=== PATIENT | female | born 1945 | race Caucasian/White ===

== ENCOUNTER 2017-07-25 06:52 | Inpatient (IN) | payer MEDICARE, MEDICAID ==
[~2017-07-25] VITALS: Ht 165.1 cm; Wt 53.5 kg
[~2017-07-25 06:52] MED LIST: ALPR1TAB2 PO; DULO30CA2 PO; ESTR1TAB28 PO; IPRA14.7 HHN; LEVO25TA9 PO; MEDR2.5T PO; OXYC-133 PO; TRAZ150T75 PO
--- NOTE | 2017-07-25 06:52 | NUR ---
TO BED 2 BIB PARAMEDICS C/O POSSIBLE TRAZODONE OVERDOSE. PT WAS FOUND IN THE BATHROOM FLOOR VOMITING WITH AN EMPTY BOTTLE OF TRAZODONE. PT AAOX4, SLOW TO RESPOND. PT REPORTS THATS SHE TOOK [address] PT ON CARDIAC MONITORING, CONTINUOUS POX. ER MD AT BEDSIDE TO EVAL PT WITH ORDERS RECEIVED. SL 18G TO LAC TOBACCO WRAPPING MACHINE TENDER. WILL CARRY OUT ORDERS.
[2017-07-25] MEDS ORDERED: ONDANSETRON HCL/PF 4 MG/2 ML VIAL ONE (06:57)
[2017-07-25] MEDS ORDERED: IV NS 0.9% 1,000 ML BAG IV ONE ×2 (07:00→08:30)
--- NOTE | 2017-07-25 07:10 | NUR ---
FEMALE WILMER MEHAT AT BEDSIDE FOR F/C INSERTION.
--- NOTE | 2017-07-25 07:35 | NUR ---
Patient woke up a little bit more, patient stated that she took xanax (unknown dose and quantity) with trazodone last night, but still unable to provide more informations.
--- NOTE | 2017-07-25 07:44 | NUR ---
Dr. Stewart at bedside, re assessing the patient.
[2017-07-25] MEDS ORDERED: TEMA30CA PO (07:54)
[2017-07-25] MEDS ORDERED: LISI2.5T2 PO (07:54)
[2017-07-25] MEDS ORDERED: LEVO50TA8 PO (07:54)
[2017-07-25] MEDS ORDERED: SERT50TA12 PO (07:54)
[2017-07-25] MEDS ORDERED: OXYC20TA42 PO (07:54)
[2017-07-25] MEDS ORDERED: AMLO5TAB2 PO (07:54)
[2017-07-25] MEDS ORDERED: OXYC30TA86 PO (07:54)
[2017-07-25 07:58] LABS: APPEARANCE,URINE SL CLOUDY (CLEAR); BILIRUBIN,URINE 1+ (NEGATIVE); BLOOD, URINE NEGATIVE Ery/uL (NEGATIVE); COLOR,URINE YELLOW (YELLOW); KETONES,URINE NEGATIVE (NEGATIVE); LEUKOCYTE ESTERASE ,URINE 1+ (NEGATIVE); NITRITE, URINE NEGATIVE (NEGATIVE); PROTEIN,URINE TRACE mg/dl (NEGATIVE); UGLUCOSE NEGATIVE (NEGATIVE); UROBILINOGEN,URINE 0.2 EU/dL (0.2)
[2017-07-25 08:04] LABS: BASOPHILS # (AUTO) 0.1 /CMM (0.0-0.2); BASOPHILS % (AUTO) 0.7 % (0.0-2.0); EOSINOPHILS # (AUTO) 0.1 /CMM (0.0-0.7); EOSINOPHILS % (AUTO) 0.9 % (0.0-6.0); HEMATOCRIT 38 % (33-45); HEMOGLOBIN 13.5 g/dL (11.5-14.8); LYMPHOCYTES # (AUTO) 1.4 /CMM (0.8-4.8); LYMPHOCYTES % (AUTO) 14.4 % (20.0-44.0); MEAN CORPUSCULAR HEMOGLOBIN 32 PG (26.0-33.0); MEAN CORPUSCULAR HGB CONC 35 g/dl (31.0-36.0); MEAN CORPUSCULAR VOLUME 90 fL (82-100); MONOCYTES # (AUTO) 0.8 /CMM (0.1-1.30); MONOCYTES % (AUTO) 8.2 % (2.0-12.0); NEUTROPHILS # (AUTO) 7.4 /CMM (1.8-8.9); NEUTROPHILS % (AUTO) 75.8 % (43.0-81.0); PLATELET COUNT (AUTO) 240 /CMM (150-450); RDW COEFFICIENT OF VARIATION 12.5 (11.5-15.0); RED BLOOD CELL COUNT(AUTO) 4.26 MIL/uL (4.0-5.2); WHITE BLOOD COUNT (AUTO) 9.8 K/uL (4.3-11.0)
[2017-07-25 08:09] LABS: INR 1.03 (0.87-1.13)
[2017-07-25 08:13] LABS: TROPONIN I < 0.017 ng/mL (0.00-0.056)
[2017-07-25 08:16] LABS: WBC,URINE 25-30 /HPF (0-3)
[2017-07-25 08:17] LABS: BACTERIA,URINE Moderate /HPF (None Seen); MUCUS,URINE Moderate /LPF (None Seen); SQUAMOUS EPITHELIAL CELL,UR Few /HPF (None Seen); URINE AMORPHOUS URATE Many /HPF (None Seen)
[2017-07-25 08:20] LABS: ALANINE AMINOTRANSFERASE 26 U/L (12-78); ALBUMIN 2.9 g/dL (3.4-5.0); ALCOHOL, BLOOD < 3 mg/dL (0-0); ALKALINE PHOSPHATASE 63 U/L (46-116); ASPARTATE AMINOTRANSFERASE 50 U/L (15-37); BILIRUBIN,DIRECT 0.2 mg/dL (0.0-0.2); BILIRUBIN,TOTAL 0.4 mg/dL (0.2-1.0); CALCIUM, SERUM 8.7 mg/dL (8.5-10.1); CARBON DIOXIDE 22 mmol/L (21-32); CHLORIDE 101 mmol/L (98-107); CREATININE 3.8 mg/dL (0.6-1.3); GLUCOSE 180 mg/dL (74-106); POTASSIUM 3.7 mmol/L (3.5-5.1); SALICYLATE 3.1 mg/dL (2.8-20.0); SODIUM SERUM 140 mmol/L (136-145); TOTAL PROTEIN, SERUM 6.6 g/dL (6.4-8.2)
[2017-07-25 08:24] LABS: UREA NITROGEN, BLOOD 93 mg/dL (7-18)
--- NOTE | 2017-07-25 08:32 | NUR ---
PANEL ON-CALL PAGED
[2017-07-25 08:47] LABS: ACETAMINOPHEN 0 ug/ml (10-30)
--- NOTE | 2017-07-25 09:07 | NUR ---
REPORT GIVEN TO JEANNETTE GUILLEN FOR CONT OF CARE
--- NOTE | 2017-07-25 09:57 | NUR ---
Pt was transferred to floor via acls protocol
[2017-07-25 10:00] VITALS: BP 117/65
--- NOTE | 2017-07-25 10:00 | NUR ---
RN NOTES PT WAS BROUGHT UP FROM ER. PT IS LETHARGIC AND AROUSABLE TO LIGHT PAIN. PT ON 3L O2, RESPIRATIONS ARE SHORT AND LABORED. IV ON RAC AND LAC INTACT AND SL. ASHRAF CATHETER IS INTACT AND DRAINING. SAFETY MEASURES ARE IN PLACE. WILL CONTINUE TO MONITOR.
[2017-07-25] MEDS ORDERED: IV NS 0.9% 1,000 ML IV PRN (10:45)
[2017-07-25] MEDS: LISINOPRIL (5MG) 5 MG TABLET PO SCH (11:00)
[2017-07-25] MEDS ORDERED: LORAZEPAM INJ 2 MG/ML VIAL IV PRN (11:00)
[2017-07-25] MEDS ORDERED: ONDANSETRON HCL/PF 4 MG/2 ML VIAL IVP PRN (11:00)
[2017-07-25] MEDS ORDERED: ALBUTEROL FS 2.5 MG/3 ML VIAL.NEB NEB PRN ×2 (11:00)
[2017-07-25] MEDS ORDERED: hydrALAZINE HCL 25 MG TABLET PO PRN (11:00)
[2017-07-25] MEDS ORDERED: MAGNESIUM HYDROXIDE 30 ML UDC PO PRN (11:00)
[2017-07-25] MEDS ORDERED: ZOLPIDEM TARTRATE 5 MG TABLET PO PRN (11:00)
[2017-07-25 11:44] LABS: IRON, SERUM 53 ug/dl (50-175); TOTAL IRON BINDING CAPACITY 257 ug/dl (250-450)
[2017-07-25] MEDS: CEFTRIAXONE 1 G in IV D5W 50 ML IV SCH (12:05)
[2017-07-25 13:18] LABS: ALANINE AMINOTRANSFERASE 31 U/L (12-78); ALBUMIN 2.8 g/dL (3.4-5.0); ALKALINE PHOSPHATASE 63 U/L (46-116); ASPARTATE AMINOTRANSFERASE 46 U/L (15-37); BILIRUBIN,TOTAL 0.4 mg/dL (0.2-1.0); CALCIUM, SERUM 8.2 mg/dL (8.5-10.1); CARBON DIOXIDE 22 mmol/L (21-32); CHLORIDE 110 mmol/L (98-107); CREATININE 2.5 mg/dL (0.6-1.3); GLUCOSE 129 mg/dL (74-106); MAGNESIUM 2.1 mg/dL (1.8-2.4); SODIUM SERUM 145 mmol/L (136-145); TOTAL PROTEIN, SERUM 6.5 g/dL (6.4-8.2); UREA NITROGEN, BLOOD 78 mg/dL (7-18)
[2017-07-25 13:21] LABS: TROPONIN I < 0.017 ng/mL (0.00-0.056)
[2017-07-25] MEDS: ALBUTEROL FS 2.5 MG/3 ML VIAL.NEB NEB SCH ×2 (14:29→20:10)
--- NOTE | 2017-07-25 14:29 | NUR ---
Tx schedue for 11AM not given due to not aware of patient. I was notified at this time by RN. Second tx for day shift was given. Pt is stable. No SOB or respiratory distress noted at this time.
[2017-07-25 14:37] LABS: CREATINE KINASE MB 6.5 ng/mL (0-3.6)
[2017-07-25 16:00] VITALS: BP 124/91
--- NOTE | 2017-07-25 18:33 | NUR ---
RN NOTES PT IS LAYING DOWN IN BED, SLEEPING. PT IS LETHARGIC, AROUSABLE TO NAME AND LIGHT TOUCH. PT ON 3L O2, RESPIRATIONS ARE EVEN. IV ON RAC INTACT AND RUNNING NS @ 75ML/HR, IV ON LAC INTACT AND SL. ASHRAF CATHETER IS INTACT AND DRAINING, 300 ML OUTPUT. SAFETY MEASURES ARE IN PLACE, CALL LIGHT IS IN REACH. WILL ENDORSE TO ACCOUNT MANAGEMENT SPECIALIST RN FOR CONTINUITY OF CARE.
--- NOTE | 2017-07-25 19:30 | NUR ---
RANCH COOK OPENING NOTES: PATIENT IN BED AOX2, ASLEEP BUT AWAKENS EASILY TO NAME BEING CALLED, HOWEVER, NOTED TO FALL BACK TO SLEEP EASILY. ON TELE MONITORING, WITH SINUS RHYTHM AT RATE OF 80S. PIV OVER RAC G 16 INTACT AND PATENT, INFUSING WELL WITH NS RUNNING AT 75 ML/HR. ASHRAF CATHETER IN PLACE, DRAINING CLEAR YELLOW URINE. PROVIDED FOR COMFORT AND SAFETY. BED IN LOWEST AND LOCKED POSITION, SIDERAILS UP X 3, CALL LIGHT WITHIN REACH. WILL CONT TO MONITOR.
[2017-07-25 20:00] VITALS: BP 137/69
[2017-07-25] MEDS: TEMAZEPAM 15 MG CAPSULE PO SCH (22:00)
--- NOTE | 2017-07-25 22:32 | NUR ---
RN NOTES: DID NOT ADMINISTER TEMAZEPAM AT THIS TIME, PATIENT ASLEEP.
[2017-07-26] VITALS: BP 127/70
[2017-07-26] MEDS: ALBUTEROL FS 2.5 MG/3 ML VIAL.NEB NEB SCH ×4 (01:37→21:38)
[2017-07-26 04:00] VITALS: BP 152/65
--- NOTE | 2017-07-26 05:15 | NUR ---
RN NOTES: PATIENT AOX1, APPEARS MORE AWAKE NOW. APPEARS CALM AND IN NO DISTRESS. LIGHT SNACK GIVEN.
[2017-07-26 06:39] LABS: BASOPHILS # (AUTO) 0.1 /CMM (0.0-0.2); BASOPHILS % (AUTO) 1.1 % (0.0-2.0); EOSINOPHILS % (AUTO) 0.2 % (0.0-6.0); HEMATOCRIT 37 % (33-45); HEMOGLOBIN 12.9 g/dL (11.5-14.8); LYMPHOCYTES # (AUTO) 1.4 /CMM (0.8-4.8); LYMPHOCYTES % (AUTO) 15.7 % (20.0-44.0); MEAN CORPUSCULAR HEMOGLOBIN 32 PG (26.0-33.0); MEAN CORPUSCULAR HGB CONC 35 g/dl (31.0-36.0); MEAN CORPUSCULAR VOLUME 91 fL (82-100); MONOCYTES # (AUTO) 0.8 /CMM (0.1-1.30); MONOCYTES % (AUTO) 8.8 % (2.0-12.0); NEUTROPHILS # (AUTO) 6.7 /CMM (1.8-8.9); NEUTROPHILS % (AUTO) 74.2 % (43.0-81.0); PLATELET COUNT (AUTO) 249 /CMM (150-450); RDW COEFFICIENT OF VARIATION 12.8 (11.5-15.0); RED BLOOD CELL COUNT(AUTO) 4.04 MIL/uL (4.0-5.2)
--- NOTE | 2017-07-26 06:57 | NUR ---
ICT ANALYST CLOSING NOTES: PATIENT IN BED, AOX1, APPEARS MORE AWAKE, ON O2 AT 3 LPM VIA NC, BREATHING EVEN AND UNLABORED. ON TELE MONITORING: SINUS RHYTHM AT RATE OF 80S. PIV OVER RAC G 16 INTACT AND INFUSING WELL WITH NS RUNNING AT 75 ML /HR. ASHRAF CATHETER DRAINING DARK YELLOW URINE. PROVIDED FOR COMFORT AND SAFETY. BED IN LOWEST AND LOCKED POSITION, SIDERAILS UP X 3, CALL LIGHT WITHIN REACH. WILL ENDORSE TO AM RN FOR GABRIELE.
[2017-07-26 07:02] LABS: CALCIUM, SERUM 8.3 mg/dL (8.5-10.1); CREATININE 0.9 mg/dL (0.6-1.3); MAGNESIUM 1.8 mg/dL (1.8-2.4); PHOSPHORUS 2.3 mg/dL (2.5-4.9); POTASSIUM 3.4 mmol/L (3.5-5.1)
--- NOTE | 2017-07-26 07:15 | NUR ---
RN NOTES PT IS LAYING DOWN IN BED, SLEEPING BUT AROUSABLE. PT ON 3L O2, RESPIRATIONS ARE EVEN AND UNLABORED. IV ON RAC INTACT AND RUNNING NS @ 75ML/HR AND IV ON LAC INTACT AND SL. ASHRAF CATHETER IS INTACT AND DRAINING. SAFETY MEASURES ARE IN PLACE, CALL LIGHT IS IN REACH. WILL CONTINUE TO MONITOR.
[2017-07-26 08:00] VITALS: BP 126/73
[2017-07-26] MEDS: LEVOTHYROXINE SODIUM 50 MCG TABLET PO SCH (08:09)
[2017-07-26] MEDS: AMLODIPINE BESYLATE 5 MG TABLET PO SCH (08:10)
[2017-07-26] MEDS ORDERED: SERTRALINE HCL 50 MG TABLET PO SCH (09:00)
[2017-07-26] MEDS: LISINOPRIL (5MG) 5 MG TABLET PO SCH (09:13)
[2017-07-26] MEDS: CEFTRIAXONE 1 G in IV D5W 50 ML IV SCH (10:00)
[2017-07-26] MEDS: ALPRAZOLAM 0.25 MG TABLET PO SCH ×2 (11:14→16:36)
--- NOTE | 2017-07-26 13:00 | NUR ---
RN NOTES CALLED PHARMACY TWICE FOR POTASSIUM PHOSPHATE DUE AT 1100. PHARMACISTS STATES THEY ARE WORKING ON IT.
[2017-07-26] MEDS: POTASSIUM PHOSPHATE MM 5 MMOL in IV D5W 100 ML IV SCH ×2 (13:52→16:36)
--- NOTE | 2017-07-26 15:30 | NUR ---
Social service consult requested by Dr. Cabral for assessment. Pt. is a 71 year old female who was admitted to [facility] altered mental status and to r/o drug od. SW met with pt. bedside. Pt. is alert and oriented x 2. Pt. states she lives with someone but wouldn't give his name. Pt. stated " it's none of your business". Pt. appears disheveled and confused at times, mumbling words that are difficult to understand. Pt. states she drinks vodka daily and denies any drug use. SW to reassess pt. once she is more alert and oriented.
[2017-07-26 16:00] VITALS: BP 113/81
[2017-07-26 16:34] VITALS: BP 123/70
[2017-07-26] MEDS: DULOXETINE HCL 30 MG CAPSULE.DR PO SCH (16:36)
[2017-07-26] MEDS: Potassium Chloride 20 MEQ in IV D5/0.45 NACL 1,000 ML IV PRN (17:56)
--- NOTE | 2017-07-26 18:40 | NUR ---
RN NOTES PT IS RESTING IN BED WITH FRIEND AT BEDSIDE. PT ON 2L O2, RESPIRATIONS ARE EVEN AND UNLABORED. IV ON RAC INTACT AND RUNNING D5 1/2NS +20MEQ KCL @ 75ML/HR. ALL MEDS WERE GIVEN ORDERED, PT NEEDS MET. ASHRAF CATHETER INTACT AND DRAINING. SAFETY MEASURES ARE IN PLACE, CALL LIGHT IS IN REACH. WILL ENDORSE TO RADIO PRESENTER RN FOR CONTINUITY OF CARE.
--- NOTE | 2017-07-26 19:45 | NUR ---
MS JUANA INITIAL NOTES RECEIVED REPORT FROM AM NURSE AND SEEN PT IN BED ON SITTING POSITION WHILE STILL EATING HER DINNER . NO ASPIRATION NOTED. DENIES ANY DISCOMFORT. IVF STILL INFUSING ON HER RIGHT AC PATENT AND INTACT AND SHE ALSO HAVE HEPLOCK ON HER RIGHT AC PATENT AND INTACT WELL. ASHRAF TO GRAVITY. RE-ORIENTED PT HOW TO USED THE CALL LIGHT SYSTEM AND ENCOURAGE HER TO USE IF SHE NEEDS HELP OR NEEDS THE NURSE. CONFUSION NOTED ONCE IN A WHILE .KEPT HER WARM AND COMFORTABLE AT ALL TIMES. PLACE CALL LIGHT AT REACH. BED ALARM SET FOR SAFETY.
[2017-07-26 20:00] VITALS: BP 152/79
[2017-07-26] MEDS: TEMAZEPAM 15 MG CAPSULE PO SCH (22:08)
[2017-07-26] MEDS: MIRTAZAPINE 15 MG TABLET PO SCH (22:08)
[2017-07-27] MEDS: ALBUTEROL FS 2.5 MG/3 ML VIAL.NEB NEB SCH ×4 (02:31→20:32)
[2017-07-27 07:22] LABS: BASOPHILS # (AUTO) 0.1 /CMM (0.0-0.2); BASOPHILS % (AUTO) 0.7 % (0.0-2.0); EOSINOPHILS # (AUTO) 0.1 /CMM (0.0-0.7); EOSINOPHILS % (AUTO) 0.7 % (0.0-6.0); HEMATOCRIT 37 % (33-45); HEMOGLOBIN 13.1 g/dL (11.5-14.8); LYMPHOCYTES # (AUTO) 2.2 /CMM (0.8-4.8); LYMPHOCYTES % (AUTO) 19.3 % (20.0-44.0); MEAN CORPUSCULAR HEMOGLOBIN 32 PG (26.0-33.0); MEAN CORPUSCULAR HGB CONC 36 g/dl (31.0-36.0); MEAN CORPUSCULAR VOLUME 90 fL (82-100); MONOCYTES # (AUTO) 0.8 /CMM (0.1-1.30); MONOCYTES % (AUTO) 7.2 % (2.0-12.0); NEUTROPHILS # (AUTO) 8.4 /CMM (1.8-8.9); NEUTROPHILS % (AUTO) 72.1 % (43.0-81.0); PLATELET COUNT (AUTO) 236 /CMM (150-450); RDW COEFFICIENT OF VARIATION 12.4 (11.5-15.0); WHITE BLOOD COUNT (AUTO) 11.7 K/uL (4.3-11.0)
[2017-07-27 07:25] LABS: CALCIUM, SERUM 8.2 mg/dL (8.5-10.1); CREATININE 0.5 mg/dL (0.6-1.3); POTASSIUM 2.9 mmol/L (3.5-5.1)
--- NOTE | 2017-07-27 07:30 | NUR ---
MS VENDOR MANAGER CLOSING NOTES PT REMAIN SLEEPING COMFORTABLY IN BED WITH IVF STILL INFUSING ON HER RIGHT AC PATENT AND INTACT WELL HER IV HEPLOCK IN LEFT AC. SLEPT WELL AND STABLE MARTIR THE NIGHT. ALL DUE MEDS GIVEN AND ALL NEEDS MET. KEPT HER WARM AND COMFORTABLE AT ALL TIMES. ASHRAF TO GRAVITY AND DRAINING WELL. ENDORSE TO INCOMING NURSE FOR CONTINUITY OF CARE. PLACE CALL LIGHT AT REACH.
[2017-07-27 08:00] VITALS: BP 162/80
--- NOTE | 2017-07-27 08:20 | NUR ---
ms rn received on bed, awake,alert,oriented x3,not in any form of distress, respirations even and unlabored,no sob noted, lungs are clear,abdomen soft,positive bowel sounds, denies pain at this time, will monitor patient.
--- NOTE | 2017-07-27 09:45 | NUR ---
ms fuentes breakfast served,due meds given,tolerated well.
[2017-07-27] MEDS: CEFTRIAXONE 1 G in IV D5W 50 ML IV SCH (11:04)
[2017-07-27] MEDS: LEVOTHYROXINE SODIUM 50 MCG TABLET PO SCH (11:05)
[2017-07-27] MEDS: ALPRAZOLAM 0.25 MG TABLET PO SCH ×2 (11:05→17:49)
[2017-07-27] MEDS: Potassium Chloride 20 MEQ in IV D5/0.45 NACL 1,000 ML IV PRN (11:05)
[2017-07-27] MEDS: LISINOPRIL (5MG) 5 MG TABLET PO SCH (11:06)
[2017-07-27] MEDS: AMLODIPINE BESYLATE 5 MG TABLET PO SCH (11:06)
[2017-07-27 16:00] VITALS: BP 147/74
[2017-07-27] MEDS: DULOXETINE HCL 30 MG CAPSULE.DR PO SCH (17:49)
--- NOTE | 2017-07-27 18:38 | NUR ---
ms rn on bed,no change of condition.
[2017-07-27 20:00] VITALS: BP 166/85
[2017-07-27] MEDS: MIRTAZAPINE 15 MG TABLET PO SCH (21:42)
[2017-07-27] MEDS: TEMAZEPAM 15 MG CAPSULE PO SCH (21:42)
[2017-07-27] MEDS: MAG HYDROX/AL HYDROX/SIMETH 30 ML UDC PO PRN (23:10)
--- NOTE | 2017-07-27 23:10 | NUR ---
FISH FRYER/ NOTES C/O DYSPEPSIA. MAALOX GIVEN ORDERED. PT PLACE ON SEMI FOWLERS POSITION WITH SIDE RAILS X2 UP AND IVF STILL INFUSING. KEPT HER WARM AND COMFORTABLE AT ALL TIMES. PLACE CALL LIGHT AT REACH.
[2017-07-28] VITALS: BP 150/87
[2017-07-28] MEDS: ALBUTEROL FS 2.5 MG/3 ML VIAL.NEB NEB SCH ×2 (02:07→08:43)
[2017-07-28] MEDS: Potassium Chloride 20 MEQ in IV D5/0.45 NACL 1,000 ML IV PRN (02:21)
--- NOTE | 2017-07-28 07:00 | NUR ---
MS REGISTERED NURSE CLOSING NOTES PT AWAKE AND ALERT , MAALOX GIVEN TO RELIEVED PT UPSET STOMACH, NO N/V NOTED. IVF INFUSING AT THIS TIME. NO SIGNS OF ANY ACUTE DISTRESS NOTED. KEPT HER WARM AND COMFORTABLE AT ALL TIME. ASHRAF DRAINING WELL. ALL DUE MEDS GIVEN AND ALL NEEDS MET . SLEPT WELL AND STABLE MARTIR THE NIGHT AFTER SLEEP MEDICATION GIVEN. ENDORSE TO AM NURSE FOR CONTINUITY OF CARE. PLACE CALL LIGHT AT REACH.
--- NOTE | 2017-07-28 07:39 | NUR ---
MS/RN OPENING NOTE PATIENT IN BED IN STABLE CONDITION. A/O X 2-3. NO SIGNS OF ACUTE DISTRESS. NO COMPLAIN OF PAIN OR DISCOMFORT. ALL NEEDS ATTENDED TO AT THIS TIME. CALL LIGHT WITHIN REACH. WILL CONTINUE TO MONITOR TO ENSURE SAFETY.
[2017-07-28 08:00] VITALS: BP 143/71
[2017-07-28] MEDS: AMLODIPINE BESYLATE 5 MG TABLET PO SCH (08:35)
[2017-07-28] MEDS: LEVOTHYROXINE SODIUM 50 MCG TABLET PO SCH (08:35)
[2017-07-28 08:36] VITALS: BP 143/71
[2017-07-28] MEDS: ALPRAZOLAM 0.25 MG TABLET PO SCH (08:36)
[2017-07-28] MEDS: LISINOPRIL (5MG) 5 MG TABLET PO SCH (08:36)
[2017-07-28] MEDS: MAG HYDROX/AL HYDROX/SIMETH 30 ML UDC PO PRN (10:15)
--- NOTE | 2017-07-28 11:26 | NUR ---
THEO was informed by pt's RN Gerald that pt's cousin Kelby called wanting to not discharge pt. back home with pt's boyfriend Bob. THEO also received a voicemail from Kelby informing SW that pt. cannot be discharged back home with Bob and needs to go to [facility]. In his voicemail Kelby stated that they have changed the locks to pt's house to prevent Peter from going in. He also stated that pt's mother is dying in [place] in the next 24-48 hours. THEO and nurse case management Amado met with pt. bedside. Pt. is alert and oriented x 4. THEO and Amado informed pt. that her cousin Kelby called and if she was okay with SW sharing information about her. Pt. declined stating not to share information about her to him. Pt. also stated it was an accidental overdose and not intentional. Pt. continues to deny suicidal/homicidal ideations at this time. Pt. declined to go to drug rehabilitation at this time and wants to go home with boyfriend Bob who will be transporting pt. home. Bob was waiting outside pt's room. THEO attempted to call Kelby back several times to inform him that pt. does not want any of her information shared with him, and due to HIPPA. However, the phone number states it is a nonworking number.
[2017-07-28] MEDS ORDERED: POTASSIUM CHLORIDE 20 MEQ TAB.PRT.SR PO ONE (11:30)
--- NOTE | 2017-07-28 11:32 | NUR ---
MS/TRANSITIONS RN CARE COORDINATOR PATIENT DISCHARGE HOME IN STABLE CONDITION. A/O X 4. ABLE TO MAKE DECISIONS AND NEEDS KNOWN. NO SIGNS OF ACUTE DISTRESS. NO COMPLAIN OF PAIN OR DISCOMFORT. DISCHARGE INSTRUCTIONS AND TEACHINGS PROVIDED, VERBALIZED UNDERSTANDING. ALSO MADE AWARE TO FOLLOW UP WITH YOUR PRIMARY WITHIN A WEEK. VERBALIZED UNDERSTANDING. ALL NEEDS ATTENDED TO. NAME BAND AND IV LINE REMOVED. LEFT VIA PRIVATE CAR ACCOMPANIED BY BOYFRIEND.
== END 2017-07-28 13:49 | disposition home or self-care (01) | DRG 917 ==
LOC: ER 06:53 → TELE 08:58 → MED 07-26 09:29
PROVIDERS: ADMIT Internal Medicine; ATTEND Internal Medicine
DX: T43.211A Poisoning by selective serotonin and norepinephrine reuptake inhibitors, accidental (unintentional), initial encounter (principal); N17.0 Acute kidney failure with tubular necrosis; G92 Toxic encephalopathy; E44.0 Moderate protein-calorie malnutrition; E87.0 Hyperosmolality and hypernatremia; E87.2 Acidosis; F11.20 Opioid dependence, uncomplicated; Y92.009 Unspecified place in unspecified non-institutional (private) residence as the place of occurrence of the external cause; F13.90 Sedative, hypnotic, or anxiolytic use, unspecified, uncomplicated; F32.9 Major depressive disorder, single episode, unspecified; F41.9 Anxiety disorder, unspecified; I10 Essential (primary) hypertension; Z96.659 Presence of unspecified artificial knee joint; Z96.643 Presence of artificial hip joint, bilateral; Z86.59 Personal history of other mental and behavioral disorders; Z85.3 Personal history of malignant neoplasm of breast; Z79.899 Other long term (current) drug therapy; E03.9 Hypothyroidism, unspecified; E78.5 Hyperlipidemia, unspecified; E86.0 Dehydration; Z88.6 Allergy status to analgesic agent; Z88.5 Allergy status to narcotic agent
CPT/HCPCS: 36415; 70450-TC; 71045-TC; 76770-TC; 80048-TC; 80053-TC; 80076-TC; 80305; 81000-TC; 82553-TC; 82962-TC; 83540-TC; 83735-TC; 84100-TC; 84484-TC; 85025-TC; 85730-TC; 87040-TC; 87081-TC; 87086-TC; 94799-TC; A4606; A6253; G0480; J0696; J2405; J3480; J3490; J7030; J7060; Z7610

== ENCOUNTER 2018-01-22 17:42 | Emergency (ER) | payer MEDICARE, OTHER ==
[~2018-01-22] VITALS: Ht 160 cm; Wt 54.4 kg
[~2018-01-22 17:42] MED LIST changes: +AMLO5TAB2 PO; -DULO30CA2 PO; -ESTR1TAB28 PO; -IPRA14.7 HHN; -LEVO25TA9 PO; +LEVO50TA8 PO; +LISI2.5T2 PO; -MEDR2.5T PO; -OXYC-133 PO; +OXYC20TA42 PO; +OXYC30TA86 PO; +SERT50TA12 PO; +TEMA30CA PO
--- NOTE | 2018-01-22 17:50 | NUR ---
PT TO ER BED 01. PRESENTS W/ L WRIST AND L HIP PAIN S/P TRIP AND FALL 3 HOURS AGO. L WRIST DEFORMITY NOTED. PT DENIES HEAD TRAUMA. 01/19 PAIN. AWAITING MD COMBS.
--- NOTE | 2018-01-22 17:55 | NUR ---
DR PATEL AT BEDSIDE FOR EVAL.
[2018-01-22] MEDS ORDERED: MORPHINE SULFATE INJ 2 MG/ML DISP.SYRIN ONE (18:00)
[2018-01-22] MEDS ORDERED: MORPHINE SULFATE INJ 2 MG/ML DISP.SYRIN IM ONE (18:00)
--- NOTE | 2018-01-22 18:05 | NUR ---
RADIOLOGY AT BEDSIDE FOR WRIST AND HIP XRAY.
--- NOTE | 2018-01-22 18:10 | NUR ---
MORPHINE 2MG IVP GIVEN INSTEAD OF MORPHINE 4MG PER DR PATEL'S VERBAL ORDER. PT IS 72 Y/O 54 KLG. ORDER CARRIED OUT.
--- NOTE | 2018-01-22 18:42 | NUR ---
ASIA SU AT BEDSIDE FOR SPLINT PLACEMENT.
--- NOTE | 2018-01-22 19:11 | NUR ---
Patient discharged to home in stable condition. Written and verbal after care instructions given. Patient verbalizes understanding of instruction.
[2018-01-22 19:12] VITALS: BP 132/77
== END 2018-01-22 19:13 | disposition home or self-care (01) ==
LOC: ER 17:43
DX: S52.512A Displaced fracture of left radial styloid process, initial encounter for closed fracture (principal); S52.612A Displaced fracture of left ulna styloid process, initial encounter for closed fracture; S70.02XA Contusion of left hip, initial encounter; M54.9 Dorsalgia, unspecified; F41.9 Anxiety disorder, unspecified; F32.9 Major depressive disorder, single episode, unspecified; E78.5 Hyperlipidemia, unspecified; I10 Essential (primary) hypertension; F10.10 Alcohol abuse, uncomplicated; Y90.9 Presence of alcohol in blood, level not specified; Z88.6 Allergy status to analgesic agent; Z96.642 Presence of left artificial hip joint; Z96.669 Presence of unspecified artificial ankle joint; Z85.3 Personal history of malignant neoplasm of breast; Z88.5 Allergy status to narcotic agent; Z87.891 Personal history of nicotine dependence; W01.0XXA Fall on same level from slipping, tripping and stumbling without subsequent striking against object, initial encounter; Y93.89 Activity, other specified; Y92.89 Other specified places as the place of occurrence of the external cause; Y99.8 Other external cause status
CPT/HCPCS: 29125; 73110; 73503; 96372; 99284; A4606; J2270; 73502; Z7610

== ENCOUNTER 2018-02-28 17:59 | Inpatient (IN) | payer MEDICARE, OTHER ==
[~2018-02-28] VITALS: Ht 160 cm; Wt 44.5 kg
[~2018-02-28 17:59] MED LIST changes: -AMLO5TAB2 PO; +AMLO5TAB7 PO
[2018-02-28] MEDS ORDERED: TRAMADOL HCL 50 MG TABLET ONE (18:44)
--- NOTE | 2018-02-28 18:52 | NUR ---
WORSENING LEFT WRIST PAIN,WRIST SPLINT APPLIED BY ORTHOPEDIC DOCTOR. PT AAOX3, VSS. MEDICATED FOR PAIN. PT SEEN & EVAL'D BY DR. KENT. WILL CONT TO MONITOR.
[2018-02-28] MEDS ORDERED: TRAMADOL HCL 50 MG TABLET PO ONE (19:00)
[2018-02-28] MEDS ORDERED: VANCOMYCIN 1 GM in IV D5W 250 ML IV ONE (20:00)
[2018-02-28] MEDS ORDERED: PIPERACILLIN /TAZOBACTAM 3.375 G in IV D5W 50 ML IV ONE (20:00)
[2018-02-28 20:05] LABS: BASOPHILS # (AUTO) 0.4 /CMM (0.0-0.2); BASOPHILS % (AUTO) 2.9 % (0.0-2.0); EOSINOPHILS % (AUTO) 1.2 % (0.0-6.0); HEMATOCRIT 46 % (33-45); HEMOGLOBIN 15.3 g/dL (11.5-14.8); LYMPHOCYTES # (AUTO) 2.9 /CMM (0.8-4.8); LYMPHOCYTES % (AUTO) 22.4 % (20.0-44.0); MEAN CORPUSCULAR HEMOGLOBIN 30 PG (26.0-33.0); MEAN CORPUSCULAR HGB CONC 33 g/dl (31.0-36.0); MEAN CORPUSCULAR VOLUME 90 fL (82-100); MONOCYTES # (AUTO) 1.4 /CMM (0.1-1.30); MONOCYTES % (AUTO) 10.5 % (2.0-12.0); NEUTROPHILS # (AUTO) 8.2 /CMM (1.8-8.9); PLATELET COUNT (AUTO) 287 /CMM (150-450); RDW COEFFICIENT OF VARIATION 12.5 (11.5-15.0); WHITE BLOOD COUNT (AUTO) 13.1 K/uL (4.3-11.0)
[2018-02-28] MEDS ORDERED: VANCOMYCIN 1 GM VIAL ONE (20:11)
[2018-02-28] MEDS ORDERED: PIPERACILLIN /TAZOBACTAM 3.375 G VIAL IV ONE (20:11)
[2018-02-28 20:13] LABS: CARBON DIOXIDE 34 mmol/L (21-32); CHLORIDE 98 mmol/L (98-107); CREATININE 0.7 mg/dL (0.6-1.3); GLUCOSE 125 mg/dL (74-106); POTASSIUM 4.1 mmol/L (3.5-5.1); SODIUM SERUM 133 mmol/L (136-145); UREA NITROGEN, BLOOD 8 mg/dL (7-18)
--- NOTE | 2018-02-28 20:25 | NUR ---
PT IS ASSIGNED TO MED SURG RM#: LEFT FOREARM CELLULITIS, AND ACCEPTING MD: DR MULLIGAN
[2018-02-28 21:00] VITALS: BP 118/64
--- NOTE | 2018-02-28 21:00 | NUR ---
MS PIPE FITTER GAS PIPE NOTES RECEIVED FROM ER PER CIRILO THIS 72 YO FEMALE,ALERT,ORIENTED X4,NO SOB.WITH CHIEF COMPLAINTS OF LEFT ARM PAIN,PER PATIENT SHE HAS WRIST FRACTURE AND WRIST SPLINT WAS APPLIED BY ORTHOPEDIC DOCTOR,NOT IN [place].SHE WAS SEEN HERE ON 01/22/18 FOR WRIST FRACTURE.LEFT FORE ARM APPEARS SWOLLEN AND SKIN IS RED,WITH SCANTY,FISHY ODOR NOTED.PAIN AT 8/10.WITH VANCOMYCIN IV INFUSING FROM ER ON RIGHT AC,SITE PATENT.WILL CONTINUE TO MONITOR STATUS.CALL LIGHT IN REACH,NEEDS ANTICIPATED.
[2018-02-28 21:10] VITALS: BP 118/64
[2018-02-28] MEDS ORDERED: MORPHINE SULFATE INJ 2 MG/ML DISP.SYRIN IV PRN (22:00)
[2018-02-28] MEDS ORDERED: ALBUTEROL FS 2.5 MG/3 ML VIAL.NEB NEB PRN (22:00)
[2018-02-28] MEDS ORDERED: ONDANSETRON HCL/PF 4 MG/2 ML VIAL IVP PRN (22:00)
[2018-02-28] MEDS: TEMAZEPAM 15 MG CAPSULE PO PRN (22:25)
--- NOTE | 2018-02-28 22:25 | NUR ---
MS RN NOTES C/O INSOMNIA,RESTORIL 30MG PO GIVEN PER PATIENT REQUEST
[2018-03-01] MEDS ORDERED: MORPHINE SULFATE INJ 2 MG/ML DISP.SYRIN IV PRN (00:30)
[2018-03-01] MEDS ORDERED: MAGNESIUM HYDROXIDE 30 ML UDC PO PRN (00:30)
[2018-03-01] MEDS ORDERED: diphenhydrAMINE HCL 50 MG/ML VIAL IV PRN (00:30)
[2018-03-01] MEDS ORDERED: PIPERACILLIN /TAZOBACTAM 3.375 G VIAL IV ONE (04:53)
[2018-03-01] MEDS ORDERED: PIPERACILLIN /TAZOBACTAM 3.375 G in IV D5W 50 ML IV SCH (05:00)
[2018-03-01] MEDS: MORPHINE SULFATE INJ 4 MG/ML DISP.SYRIN IV PRN ×2 (05:24→15:49)
--- NOTE | 2018-03-01 07:16 | NUR ---
MS RN NOTES SLEPT WELL WITH MORPHINE,IV ABX TOLERATED WELL.LEFT FOREARM SWELLING SUBSIDING.IN NO ACUTE DISTRESS.WILL ENDORSE TO RAKAN GUILLEN FOR GABRIELE.
[2018-03-01 08:00] VITALS: BP 120/68
--- NOTE | 2018-03-01 08:00 | NUR ---
MS WILMER AM NOTES RECEIVED PT ALERT,ORIENTED X4,NO SOB.WITH CHIEF COMPLAINTS OF LEFT ARM PAIN,WITH CELLULITIS-OXYCONTIN 20 MG PO GIVEN FOR PAIN MGT.RIGHT AC H/L,SITE PATENT.WILL CONTINUE TO MONITOR STATUS.CALL LIGHT IN REACH,
[2018-03-01] MEDS ORDERED: FEE PK DOSING 1 MIN EA MC ONE (08:42)
[2018-03-01] MEDS: oxyCODONE HCL SR 20MG TAB.SR.12H PO SCH ×2 (09:42→21:29)
[2018-03-01] MEDS: ALPRAZOLAM 1 MG TABLET PO SCH ×2 (09:42→17:24)
[2018-03-01] MEDS: SERTRALINE HCL 50 MG TABLET PO SCH (09:42)
[2018-03-01] MEDS: AMLODIPINE BESYLATE 5 MG TABLET PO SCH (09:42)
[2018-03-01] MEDS: PANTOPRAZOLE 40 MG TABLET.DR PO SCH (09:44)
[2018-03-01] MEDS: LEVOTHYROXINE SODIUM 50 MCG TABLET PO SCH (09:45)
[2018-03-01] MEDS: VANCOMYCIN 500 MG in IV D5W 100 ML IV SCH ×2 (09:45→21:29)
[2018-03-01] MEDS: PIPERACILLIN /TAZOBACTAM 2.25 G in IV D5W 50 ML IV SCH ×2 (12:14→17:24)
--- NOTE | 2018-03-01 14:57 | NUR ---
PT REFUSED BLOOD DRAW FOR LAB TESTS SINCE AM INSPITE OF EXPLAINING ITS RISKS AND BENEFITS.
[2018-03-01 16:00] VITALS: BP 122/60
--- NOTE | 2018-03-01 18:00 | NUR ---
SEEN BY JENNY FUENTES WITH TX ORDERS ENDORSED TO SERVICE WORKER NURSE.RESTING IN BED DENYING ANY PAIN OR DISTRESS.CALL LIGHT PLACED WITHIN REACH.
--- NOTE | 2018-03-01 19:30 | NUR ---
PATIENT RECEIVED IN BED AWAKE, AO X 3, ABLE TO MAKE NEEDS KNOWN. NO ACUTE DISTRESS NOTED. PAIN 4/10 IN LEFT ARM. LEFT ARM DRESSING INTACT; ELEVATED. IV SITE PATENT, INTACT; FLUSHED. SAFETY REMINDERS GIVEN. ON LOW BED WITH BILATERAL UPPER SIDE RAILS UP. CALL DHILLON WITHIN EASY REACH. WILL CONTINUE TO MONITOR.
[2018-03-01 20:00] VITALS: BP 130/62
[2018-03-01] MEDS: SILVER SULFADIAZINE CREAM 25 GM TUBE TP SCH (20:44)
[2018-03-01] MEDS: DOCUSATE SODIUM 100 MG CAPSULE PO SCH (21:29)
[2018-03-01] MEDS: TRAZODONE 50 MG TABLET PO SCH (21:30)
[2018-03-02] MEDS: PIPERACILLIN /TAZOBACTAM 2.25 G in IV D5W 50 ML IV SCH ×5 (00:27→23:49)
[2018-03-02] MEDS: TRAMADOL HCL 50 MG TABLET PO PRN ×2 (02:40→21:56)
--- NOTE | 2018-03-02 06:51 | NUR ---
PATIENT ASLEEP, EASILY AROUSABLE. RESPIRATIONS EVEN. NO SIGNS OF PAIN NOTED. DUE MEDS GIVEN WITH NO ASE NOTED. LEFT FOREARM DRESSING INTACT. NEEDS ATTENDED. KEPT CLEAN, DRY, AND COMFORTABLE. SAFETY PRECAUTIONS AND COMFORT MEASURES IN PLACE. WILL GIVE REPORT TO DAY SHIFT FOR CONTINUITY OF CARE.
[2018-03-02 07:10] LABS: BASOPHILS % (AUTO) 0.5 % (0.0-2.0); EOSINOPHILS % (AUTO) 3.8 % (0.0-6.0); HEMATOCRIT 43 % (33-45); HEMOGLOBIN 13.9 g/dL (11.5-14.8); LYMPHOCYTES # (AUTO) 2.4 /CMM (0.8-4.8); LYMPHOCYTES % (AUTO) 28.9 % (20.0-44.0); MEAN CORPUSCULAR HEMOGLOBIN 30 PG (26.0-33.0); MEAN CORPUSCULAR HGB CONC 33 g/dl (31.0-36.0); MEAN CORPUSCULAR VOLUME 92 fL (82-100); MONOCYTES # (AUTO) 0.9 /CMM (0.1-1.30); MONOCYTES % (AUTO) 10.5 % (2.0-12.0); NEUTROPHILS # (AUTO) 4.7 /CMM (1.8-8.9); NEUTROPHILS % (AUTO) 56.3 % (43.0-81.0); PLATELET COUNT (AUTO) 215 /CMM (150-450); RDW COEFFICIENT OF VARIATION 13.2 (11.5-15.0); RED BLOOD CELL COUNT(AUTO) 4.63 MIL/uL (4.0-5.2); WHITE BLOOD COUNT (AUTO) 8.3 K/uL (4.3-11.0)
[2018-03-02 07:17] LABS: ALANINE AMINOTRANSFERASE 17 U/L (12-78); ALBUMIN 2.4 g/dL (3.4-5.0); ALKALINE PHOSPHATASE 126 U/L (46-116); ASPARTATE AMINOTRANSFERASE 20 U/L (15-37); BILIRUBIN,TOTAL 0.4 mg/dL (0.2-1.0); CALCIUM, SERUM 8.5 mg/dL (8.5-10.1); CARBON DIOXIDE 32 mmol/L (21-32); CHLORIDE 103 mmol/L (98-107); CREATININE 0.7 mg/dL (0.6-1.3); GLUCOSE 174 mg/dL (74-106); MAGNESIUM 1.9 mg/dL (1.8-2.4); POTASSIUM 3.3 mmol/L (3.5-5.1); SODIUM SERUM 139 mmol/L (136-145); TOTAL PROTEIN, SERUM 6.6 g/dL (6.4-8.2); UREA NITROGEN, BLOOD 12 mg/dL (7-18)
[2018-03-02 07:24] LABS: CHOLESTEROL 145 mg/dL (<200); HDL CHOLESTEROL 38 mg/dL (40-60); LDL 106 mg/dL (0-99); THYROID STIMULATING HORMONE 0.411 uIU/mL (0.358-3.74); TRIGLYCERIDES 94 mg/dL (30-150)
[2018-03-02] MEDS: PANTOPRAZOLE 40 MG TABLET.DR PO SCH (07:55)
[2018-03-02] MEDS: LEVOTHYROXINE SODIUM 50 MCG TABLET PO SCH (07:55)
[2018-03-02 08:00] VITALS: BP 109/62
[2018-03-02] MEDS: oxyCODONE HCL SR 20MG TAB.SR.12H PO SCH ×2 (08:00→20:47)
[2018-03-02] MEDS: SERTRALINE HCL 50 MG TABLET PO SCH (08:00)
[2018-03-02] MEDS: AMLODIPINE BESYLATE 5 MG TABLET PO SCH (08:00)
[2018-03-02] MEDS: SILVER SULFADIAZINE CREAM 25 GM TUBE TP SCH (08:00)
[2018-03-02] MEDS: ALPRAZOLAM 1 MG TABLET PO SCH ×2 (08:00→17:34)
[2018-03-02] MEDS: MORPHINE SULFATE INJ 4 MG/ML DISP.SYRIN IV PRN ×3 (08:33→22:57)
[2018-03-02] MEDS: VANCOMYCIN 500 MG in IV D5W 100 ML IV SCH ×2 (08:58→21:42)
[2018-03-02] MEDS ORDERED: POTASSIUM CHLORIDE 20 MEQ TAB.PRT.SR PO SCH (10:00)
--- NOTE | 2018-03-02 11:20 | NUR ---
WOUND CARE CONSULT: PT FOLLOWED BY PLASTICS TEAM. WILL SEE PRN. PT AMBULATORY AND CONTINENT PER NURSING STAFF.
[2018-03-02 16:00] VITALS: BP 113/61
[2018-03-02] MEDS: LACTOBACILLUS RHAMNOSUS GG 1 EACH CAP.SPRINK PO SCH (17:34)
--- NOTE | 2018-03-02 18:35 | NUR ---
RN NOTES PATIENT'S PIV FOUND ON THE BED, DISLODGED. ATTEMPTED TO RE-INSERT A PIV ON RIGHT HAND, BUT UNSUCCESSFUL, PATIENT CRYING AND REFUSING TO HAVE PIV RE-INSERTED. DR. HARRIS MADE AWARE, PER MD, ENCOURAGED PATIENT TO HAVE PIV DUE TO CELLULITIS OF THE ARM. EXPLAINED TO PATIENT, AND AGREED FOR NOW, BUT ANOTHER NURSE WILL TRY TO RE-INSERT THE IV. ASKED MILAD FOR HELP. CALL LIGHT WITHIN REACH, NEEDS ATTENDED AND MET, WILL ENDORSE TO DREDGE PUMP OPERATOR FOR GABRIELE.
--- NOTE | 2018-03-02 19:35 | NUR ---
MS RN NOTE RECEIVED PATIENT FROM DAY SHIFT, PATIENT IS ALERT AND ORINETEDX3, COMPLAINS OF PAIN ON LEFT ARM DUE TO CELLULITIS, DENIES RESPIRATORY DISTRESS. IV PULLED OUT DURING THE DAY SHIFT, WILL ATTEMPT TO REINSERT IT. SRX2, BED IN LOW POSITION, CALL LIGHT WITHIN REACH, WILL CONTINUE TO MONITOR PATIENT.
[2018-03-02 20:00] VITALS: BP 139/73
[2018-03-02] MEDS: TEMAZEPAM 15 MG CAPSULE PO PRN (21:17)
[2018-03-02] MEDS: DOCUSATE SODIUM 100 MG CAPSULE PO SCH (21:17)
[2018-03-02] MEDS: TRAZODONE 50 MG TABLET PO SCH (22:00)
--- NOTE | 2018-03-02 22:00 | NUR ---
MS RN NOTE PATIENT REFUSED TO TAKE DESYREL 300MG STATING THAT THIS MEDICATIONS DOES NOTHING TO ME, I DON'T WANT TO TAKE IT. EXPLAINED RISKS AND BENEFITS TO THE PATIENT, BUT STILL SAID NO. RETURNED THE MED TO [employer].
[2018-03-03] MEDS: MORPHINE SULFATE INJ 4 MG/ML DISP.SYRIN IV PRN ×2 (05:32→16:27)
[2018-03-03] MEDS: PIPERACILLIN /TAZOBACTAM 2.25 G in IV D5W 50 ML IV SCH ×4 (05:33→23:16)
[2018-03-03 06:05] LABS: CALCIUM, SERUM 8.8 mg/dL (8.5-10.1); CARBON DIOXIDE 30 mmol/L (21-32); CHLORIDE 106 mmol/L (98-107); CREATININE 0.6 mg/dL (0.6-1.3); GLUCOSE 86 mg/dL (74-106); SODIUM SERUM 143 mmol/L (136-145); UREA NITROGEN, BLOOD 11 mg/dL (7-18)
--- NOTE | 2018-03-03 07:15 | NUR ---
MS RN NOTE PATIENT IS RESTING IN BED COMFORTABLY, NO ACUTE DISTRESS OR EVENT THROUGHOUT THE SHIFT. MORNING CARE RENDERED. ENDORSED TO DAY SHIFT FOR GABRIELE.
--- NOTE | 2018-03-03 07:34 | NUR ---
MS RN OPENING NOTES RECEIVED PT LAYING IN BED, SLEEPING COMFORTABLY. PT IS RESPONSIVE, EASILY AROUSABLE, AFEBRILE. RESPIRATIONS ARE EVEN AND UNLABORED, NOT IN ANY ACUTE DISTRESS NOTED. PT DENIES ANY PAIN AT THIS TIME, NO C/O N/V, SOB. IV ACCESS TO RFA INTACT, NO INFILTRATION NOTED. DRESSING KEPT CLEAN AND DRY. SAFETY MEASURES ARE IN PLACE. INSTRUCTED PT TO USE CALL LIGHT WHEN ASSISTANCE IS NEEDED, CALL LIGHT IS LEFT WITHIN REACH. WILL CONTINUE TO MONITOR THROUGHOUT SHIFT FOR CONTINUITY OF CARE.
[2018-03-03 08:00] VITALS: BP 115/64
[2018-03-03] MEDS: PANTOPRAZOLE 40 MG TABLET.DR PO SCH (08:28)
[2018-03-03] MEDS: LACTOBACILLUS RHAMNOSUS GG 1 EACH CAP.SPRINK PO SCH ×2 (08:28→16:26)
[2018-03-03] MEDS: oxyCODONE HCL SR 20MG TAB.SR.12H PO SCH ×2 (08:28→20:55)
[2018-03-03] MEDS: SERTRALINE HCL 50 MG TABLET PO SCH (08:28)
[2018-03-03] MEDS: ALPRAZOLAM 1 MG TABLET PO SCH ×2 (08:28→16:26)
[2018-03-03] MEDS: LEVOTHYROXINE SODIUM 50 MCG TABLET PO SCH (08:28)
[2018-03-03] MEDS: AMLODIPINE BESYLATE 5 MG TABLET PO SCH (08:29)
[2018-03-03] MEDS: VANCOMYCIN 500 MG in IV D5W 100 ML IV SCH (08:31)
--- NOTE | 2018-03-03 08:36 | NUR ---
PT SEEN AND EXAMINED BY DR. HARRIS.
[2018-03-03 16:00] VITALS: BP_SYST 126; BP_SYST 128; BP_DIAS 58; BP_DIAS 65
--- NOTE | 2018-03-03 18:21 | NUR ---
MS RN CLOSING NOTES ALL DUE MEDS GIVEN, NEEDS MET AND RENDERED. PT REMAINS A/O X4, AFEBRILE. RESPIRATIONS ARE EVEN AND UNLABORED, NOT IN ANY ACUTE DISTRESS NOTED. NO C/O SOB, N/V. ADMINISTERED MORPHINE PRIOR TO DRESSING CHANGE TO LEFT ARM. DRESSING CHANGE DONE PER ORDERS AND TOLERATED WELL. IV SITE TO RFA INTACT, NO INFILTRATION NOTED. DRESSING KEPT CLEAN AND DRY. SAFETY MEASURES ARE IN PLACE. REMINDED PT TO USE CALL LIGHT WHEN ASSISTANCE IS NEEDED, CALL LIGHT IS LEFT WITHIN REACH.
--- NOTE | 2018-03-03 19:20 | NUR ---
MS RN NOTE RECEIVED PATIENT FROM DAY SHIFT, PATIENT IS ALERT AND ORINETEDX3, COMPLAINS OF PAIN ON LEFT ARM DUE TO CELLULITIS, DENIES RESPIRATORY DISTRESS. IV ON LEFT FA IS PATENT AND INTACT, SL ONLY. SRX2, BED IN LOW POSITION, CALL LIGHT WITHIN REACH, WILL CONTINUE TO MONITOR PATIENT.
[2018-03-03 20:00] VITALS: BP 140/62
[2018-03-03] MEDS: VANCOMYCIN 0.75 GM in IV D5W 250 ML IV SCH (20:54)
[2018-03-03] MEDS: DOCUSATE SODIUM 100 MG CAPSULE PO SCH (21:16)
[2018-03-03] MEDS: TRAZODONE 50 MG TABLET PO SCH (22:00)
[2018-03-04] MEDS: PIPERACILLIN /TAZOBACTAM 2.25 G in IV D5W 50 ML IV SCH (05:48)
--- NOTE | 2018-03-04 06:35 | NUR ---
MS RN NOTE PATIENT IS RESTING IN BED COMFORTABLY, NO ACUTE DISTRESS OR EVENT THROUGHOUT THE SHIFT. MORNING CARE RENDERED. ENDORSED TO DAY SHIFT FOR GABRIELE.
--- NOTE | 2018-03-04 07:35 | NUR ---
MS RN OPENING NOTES RECEIVED PT LAYING IN BED, SLEEPING COMFORTABLY. PT IS RESPONSIVE AND EASILY AROUSABLE, AFEBRILE. RESPIRATIONS ARE EVEN AND UNLABORED, NOT IN ANY ACUTE DISTRESS NOTED. IV ACCESS INTACT, NO INFILTRATION NOTED. DRESSING KEPT CLEAN AND DRY. DENIES ANY PAIN, SOB, N/V. SAFETY MEASURES ARE IN PLACE. INSTRUCTED PT TO USE CALL LIGHT WHEN ASSISTANCE IS NEEDED, CALL LIGHT IS LEFT WITHIN REACH. WILL CONTINUE TO MONITOR THROUGHOUT SHIFT FOR CONTINUITY OF CARE.
[2018-03-04 08:00] VITALS: BP 153/70
[2018-03-04] MEDS: oxyCODONE HCL SR 20MG TAB.SR.12H PO SCH (08:34)
[2018-03-04] MEDS: LACTOBACILLUS RHAMNOSUS GG 1 EACH CAP.SPRINK PO SCH (08:35)
[2018-03-04] MEDS: LEVOTHYROXINE SODIUM 50 MCG TABLET PO SCH (08:35)
[2018-03-04] MEDS: PANTOPRAZOLE 40 MG TABLET.DR PO SCH (08:36)
[2018-03-04] MEDS: ALPRAZOLAM 1 MG TABLET PO SCH (08:36)
[2018-03-04 08:37] VITALS: BP 153/70
[2018-03-04] MEDS: AMLODIPINE BESYLATE 5 MG TABLET PO SCH (08:37)
[2018-03-04] MEDS: SERTRALINE HCL 50 MG TABLET PO SCH (08:37)
[2018-03-04] MEDS: VANCOMYCIN 0.75 GM in IV D5W 250 ML IV SCH (08:37)
[2018-03-04] MEDS ORDERED: ACIDOPHILUS/BULGARICUS 1 EACH TAB.CHEW PO SCH (09:00)
[2018-03-04 09:45] LABS: CALCIUM, SERUM 8.9 mg/dL (8.5-10.1); CARBON DIOXIDE 30 mmol/L (21-32); CHLORIDE 103 mmol/L (98-107); CREATININE 0.8 mg/dL (0.6-1.3); GLUCOSE 191 mg/dL (74-106); POTASSIUM 3.5 mmol/L (3.5-5.1); SODIUM SERUM 140 mmol/L (136-145); UREA NITROGEN, BLOOD 10 mg/dL (7-18)
[2018-03-04] MEDS: MORPHINE SULFATE INJ 4 MG/ML DISP.SYRIN IV PRN (11:16)
--- NOTE | 2018-03-04 12:30 | NUR ---
MS INTERCEPTOR OPERATOR NOTE PT DISCHARGE TO HOME IN STABLE CONDITION ACCOMPANIED BY FRIEND YONNY VIA PERSONAL VEHICLE. PT IS A/O X4, AFEBRILE. RESPIRATIONS ARE EVEN AND UNLABORED, NOT IN ANY ACUTE DISTRESS NOTED. PT DENIES ANY CHEST PAIN, SOB, N/V. ADMINISTERED MORPHINE 2MG IV PRIOR TO DRESSING CHANGE TO LEFT ARM. DRESSING CHANGE DONE PER PROTOCOL. EXPLAINED DISCHARGE PAPERWORK TO PT WITH WRITTEN AND VERBAL UNDERSTANDING. PHOTO TAKEN OF LEFT ARM AND PLACED IN CHART. NO FURTHER SKIN ISSUES NOTED. IV ACCESS REMOVED, APPLIED PRESSURE AND TOLERATED WELL. ID BAND REMOVED. ALL BELONGINGS TAKEN WITH PT. PT DISCHARGED TO HOME IN STABLE CONDITION.
== END 2018-03-04 17:58 | disposition home or self-care (01) | DRG 580 ==
LOC: ER 18:02 → MEDSG2 20:33
PROVIDERS: ADMIT Internal Medicine; ATTEND Internal Medicine
PROC: 0KBB0ZZ Excision of Left Lower Arm and Wrist Muscle, Open Approach (ICD-10-PCS; principal; 2018-03-02)
DX: L03.114 Cellulitis of left upper limb (principal); E87.1 Hypo-osmolality and hyponatremia; E46 Unspecified protein-calorie malnutrition; Z68.1 Body mass index [BMI] 19.9 or less, adult; R62.7 Adult failure to thrive; E03.9 Hypothyroidism, unspecified; E78.5 Hyperlipidemia, unspecified; F17.210 Nicotine dependence, cigarettes, uncomplicated; I11.0 Hypertensive heart disease with heart failure; I50.9 Heart failure, unspecified; J44.9 Chronic obstructive pulmonary disease, unspecified; S52.502D Unspecified fracture of the lower end of left radius, subsequent encounter for closed fracture with routine healing; S52.612D Displaced fracture of left ulna styloid process, subsequent encounter for closed fracture with routine healing; Z85.3 Personal history of malignant neoplasm of breast; Z91.5 Personal history of self-harm; Z86.59 Personal history of other mental and behavioral disorders; Z91.81 History of falling; Z96.643 Presence of artificial hip joint, bilateral; Z96.659 Presence of unspecified artificial knee joint; M54.89 Other dorsalgia; G47.00 Insomnia, unspecified; F41.8 Other specified anxiety disorders
CPT/HCPCS: 36415; 73110; 80048-TC; 80053-TC; 80061-TC; 80202-TC; 83735-TC; 84100-TC; 84443-TC; 85025-TC; 87081-TC; A4565; A4606; A6402; A6403; J2270; J2543; J3370; J7050; J7060

== ENCOUNTER 2018-03-08 12:12 | Outpatient (CLI) | payer MEDICARE, OTHER | END 2018-03-08 23:59 | disposition home health service (06) | LOC: WOU 12:12 | PROVIDERS: ATTEND Surgery | DX: S51.812A Laceration without foreign body of left forearm, initial encounter (principal); X58.XXXA Exposure to other specified factors, initial encounter; Y92.89 Other specified places as the place of occurrence of the external cause; Z72.0 Tobacco use; F06.4 Anxiety disorder due to known physiological condition; M84.334 Stress fracture, left radius; X58.XXXD Exposure to other specified factors, subsequent encounter; L03.114 Cellulitis of left upper limb | CPT/HCPCS: 11042; A6402; Z7610 ==

== ENCOUNTER 2018-03-08 13:58 | Outpatient (CLI) | payer MEDICARE, OTHER | END 2018-03-08 23:59 | disposition home or self-care (01) | LOC: MSC 13:58 | PROVIDERS: ATTEND Internal Medicine | DX: S51.802D Unspecified open wound of left forearm, subsequent encounter (principal); X58.XXXD Exposure to other specified factors, subsequent encounter; M19.90 Unspecified osteoarthritis, unspecified site; G89.29 Other chronic pain; M54.9 Dorsalgia, unspecified; M41.9 Scoliosis, unspecified; F17.200 Nicotine dependence, unspecified, uncomplicated; J44.9 Chronic obstructive pulmonary disease, unspecified; F41.9 Anxiety disorder, unspecified; E03.9 Hypothyroidism, unspecified; E43 Unspecified severe protein-calorie malnutrition; F32.9 Major depressive disorder, single episode, unspecified; Z96.643 Presence of artificial hip joint, bilateral ==

== ENCOUNTER 2018-03-15 12:35 | Outpatient (CLI) | payer MEDICARE, OTHER | END 2018-03-15 23:59 | disposition home or self-care (01) | LOC: WOU 12:35 | PROVIDERS: ATTEND Surgery | DX: S51.812S Laceration without foreign body of left forearm, sequela (principal); X58.XXXS Exposure to other specified factors, sequela; F06.4 Anxiety disorder due to known physiological condition; M84.334D Stress fracture, left radius, subsequent encounter for fracture with routine healing; X58.XXXD Exposure to other specified factors, subsequent encounter; Z72.0 Tobacco use | CPT/HCPCS: G0463; Z7610 ==

== ENCOUNTER 2019-04-01 20:15 | Inpatient (IN) | payer MEDICARE, OTHER ==
[~2019-04-01] VITALS: Ht 160 cm; Wt 52.4 kg
[~2019-04-01 20:15] MED LIST changes: -AMLO5TAB7 PO; +AMLO5TAB9 PO
--- NOTE | 2019-04-01 20:15 | NUR ---
"BIB EMS C/O BUE PAIN S/P FALLING OUT OF BED. UNK KO. PER PT REPORT SHE WAS DOWN ON THE FLOOR SINCE 0630 AM." PT AAOX4, -SOB, NAD NOTED, VSS ,PENDING MD COMBS
[2019-04-01] MEDS ORDERED: MORPHINE SULFATE INJ 2 MG/ML DISP.SYRIN IV ONE ×2 (21:00→22:30)
[2019-04-01] MEDS ORDERED: IV NS 0.9% 1,000 ML BAG IV ONE (21:00)
[2019-04-01] MEDS ORDERED: ONDANSETRON HCL/PF 4 MG/2 ML VIAL IVP ONE (21:00)
[2019-04-01] MEDS ORDERED: ONDANSETRON HCL/PF 4 MG/2 ML VIAL ONE (21:38)
[2019-04-01] MEDS ORDERED: MORPHINE SULFATE INJ 2 MG/ML DISP.SYRIN ONE (21:38)
[2019-04-01 21:39] LABS: BASOPHILS # (AUTO) 0.1 /CMM (0.0-0.2); BASOPHILS % (AUTO) 0.5 % (0.0-2.0); EOSINOPHILS % (AUTO) 0.3 % (0.0-6.0); HEMATOCRIT 43 % (33-45); HEMOGLOBIN 14.9 g/dL (11.5-14.8); LYMPHOCYTES # (AUTO) 2.6 /CMM (0.8-4.8); LYMPHOCYTES % (AUTO) 13.2 % (20.0-44.0); MEAN CORPUSCULAR HGB CONC 34 g/dl (31.0-36.0); MEAN CORPUSCULAR VOLUME 94 fL (82-100); MONOCYTES # (AUTO) 1.2 /CMM (0.1-1.30); MONOCYTES % (AUTO) 6.2 % (2.0-12.0); NEUTROPHILS # (AUTO) 16.1 /CMM (1.8-8.9); NEUTROPHILS % (AUTO) 79.8 % (43.0-81.0); PLATELET COUNT (AUTO) 374 /CMM (150-450); RED BLOOD CELL COUNT(AUTO) 4.61 MIL/uL (4.0-5.2); WHITE BLOOD COUNT (AUTO) 20.1 K/uL (4.3-11.0)
--- NOTE | 2019-04-01 21:56 | NUR ---
CALLED DR.BURKOWITZ NICOLE EXPORT PACKER, TRANSFERRED CALL TO
[2019-04-01 21:57] LABS: CALCIUM, SERUM 10.1 mg/dL (8.5-10.1); CARBON DIOXIDE 22 mmol/L (21-32); CHLORIDE 101 mmol/L (98-107); CREATININE 2.5 mg/dL (0.6-1.3); GLUCOSE 200 mg/dL (74-106); POTASSIUM 4.8 mmol/L (3.5-5.1); SODIUM SERUM 139 mmol/L (136-145); UREA NITROGEN, BLOOD 29 mg/dL (7-18)
--- NOTE | 2019-04-01 22:03 | NUR ---
CALLED NURSING SUP. FOR MS BED
[2019-04-01] MEDS ORDERED: MORPHINE SULFATE INJ 4 MG/ML DISP.SYRIN ONE (22:06)
--- NOTE | 2019-04-01 22:08 | NUR ---
MS [id number]
--- NOTE | 2019-04-01 22:19 | NUR ---
REPORT GIVEN TO SWETA GUILLEN FOR GABRIELE PT WILL BE TRANSPORTED TO 3RD FLOOR
--- NOTE | 2019-04-01 22:35 | NUR ---
PT TRANSPORTED TO 3RD FLOOR
[2019-04-01] MEDS ORDERED: HYDROMORPHONE 1 MG/1 ML DISP.SYRIN ONE (22:57)
[2019-04-01] MEDS ORDERED: HYDROCODONE/APAP 5/325MG 1 EACH TABLET PO PRN (23:00)
[2019-04-01] MEDS ORDERED: ZOLPIDEM TARTRATE 5 MG TABLET PO PRN (23:00)
[2019-04-01] MEDS ORDERED: ONDANSETRON HCL/PF 4 MG/2 ML VIAL IVP PRN (23:00)
[2019-04-01] MEDS ORDERED: ACETAMINOPHEN 325 MG TABLET PO PRN (23:00)
[2019-04-01] MEDS ORDERED: MAGNESIUM HYDROXIDE 30 ML UDC PO PRN (23:00)
[2019-04-01 23:08] LABS: LYMPHOCYTES % (MANUAL) 11 % (16-48); MONOCYTES % (MANUAL) 5 % (0-11.0); NEUTROPHILS % (MANUAL) 84 (42-76)
[2019-04-01] MEDS ORDERED: HYDROMORPHONE 1 MG/1 ML DISP.SYRIN IV STA (23:10)
--- NOTE | 2019-04-01 23:20 | NUR ---
MS ASSEMBLY MACHINE TOOL SETTER NOTE RECEIVED PATIENT VIA GURNEY. TRANSFERED TO BED. A/O X4. TOLERATING ROOM AIR. VS TAKEN O2 SAT IN 80. PUT PT ON O2 2L/MIN VIA NASAL CANNULA. RESPIRATIONS ARE EVEN AN UNLABORED. NO S/S SOB NOTED. STATES PAIN IN 12/19. ER NURSE ENDORSE DILUADID 1MG JUST GIVEN. IN NO APPARENT DISTRESS. IV ACCESS IN RAC #20 PATENT AND SALINE LOCKED. INATAL PHYSICAL ASSESSMENT COMPLETES AT THIS TIME. ON THE LEFT UPPER AND FOREARM PATIENT HAS A SPLINT, RIGHT ARM HAS A SLING. BELONGS LIST AND VITAL SIGNS COMPLETED BY STONE ROUGHER. INFORMED PATIENT I WILL NEED A URINE SAMPLE AND IF I CAN TAKE PICTURES OR HER SKIN, SHE CONSENTED, WILL TAKE AT A LATER TIME. ROOM ORIENTATION GIVEN. BED IS LOW AND LOCKED, HOB ELEVATED 30 DEGREES, SIDE RAILS UP X2. CALL LIGHT WITH IN REACH. WILL CONTINUE TO MONITOR.
[2019-04-01 23:30] VITALS: BP 136/81
--- NOTE | 2019-04-02 | NUR ---
MS RN NOTE PHOTOS TAKEN FOR SKIN ASSESSMENT AT THIS TIME. PHOTOS PLACED IN CHART.
[2019-04-02] MEDS: IV NS 0.9% 1,000 ML IV PRN ×3 (00:25→23:23)
[2019-04-02] MEDS: ALPRAZOLAM 1 MG TABLET PO SCH ×3 (00:32→16:53)
[2019-04-02] MEDS: AMLODIPINE BESYLATE 5 MG TABLET PO SCH ×2 (00:33→08:51)
--- NOTE | 2019-04-02 00:33 | NUR ---
MS RN NOTE PARTIAL WASTED MED XANAX 0.5MG. WITNESSED BY BUBBA GULILEN. REMAINING 0.5MG DOSE PLACED IN RX DESTROYER.
[2019-04-02 02:18] VITALS: BP 136/81
[2019-04-02] MEDS: MORPHINE SULFATE INJ 2 MG/ML DISP.SYRIN IV PRN ×3 (02:52→15:41)
--- NOTE | 2019-04-02 06:00 | NUR ---
MS RN NOTE INSERTED ASHRAF CATHETER AT THIS ITME. OBTAINED URINE SPECIMEN. CALLED LAB FOR PUMPER BREWERY.
[2019-04-02 06:25] LABS: BASOPHILS % (AUTO) 0.3 % (0.0-2.0); HEMATOCRIT 37 % (33-45); HEMOGLOBIN 12.3 g/dL (11.5-14.8); LYMPHOCYTES # (AUTO) 2.3 /CMM (0.8-4.8); LYMPHOCYTES % (AUTO) 14.8 % (20.0-44.0); MEAN CORPUSCULAR HGB CONC 34 g/dl (31.0-36.0); MEAN CORPUSCULAR VOLUME 94 fL (82-100); MONOCYTES # (AUTO) 1.6 /CMM (0.1-1.30); MONOCYTES % (AUTO) 10.3 % (2.0-12.0); NEUTROPHILS # (AUTO) 11.8 /CMM (1.8-8.9); NEUTROPHILS % (AUTO) 74.6 % (43.0-81.0); PLATELET COUNT (AUTO) 311 /CMM (150-450); WHITE BLOOD COUNT (AUTO) 15.8 K/uL (4.3-11.0)
[2019-04-02 06:44] LABS: CHOLESTEROL 159 mg/dL (<200); HDL CHOLESTEROL 55 mg/dL (40-60); LDL 82 mg/dL (0-99); TRIGLYCERIDES 110 mg/dL (30-150)
[2019-04-02 06:45] LABS: CALCIUM, SERUM 8.9 mg/dL (8.5-10.1); CARBON DIOXIDE 24 mmol/L (21-32); CHLORIDE 108 mmol/L (98-107); CREATININE 2.5 mg/dL (0.6-1.3); GLUCOSE 184 mg/dL (74-106); MAGNESIUM 1.7 mg/dL (1.8-2.4); PHOSPHORUS 5.2 mg/dL (2.5-4.9); POTASSIUM 4.8 mmol/L (3.5-5.1); SODIUM SERUM 143 mmol/L (136-145); UREA NITROGEN, BLOOD 37 mg/dL (7-18)
[2019-04-02 06:46] LABS: APPEARANCE,URINE CLEAR (CLEAR); BILIRUBIN,URINE NEGATIVE (NEGATIVE); BLOOD, URINE TRACE-INTA Ery/uL (NEGATIVE); COLOR,URINE YELLOW (YELLOW); KETONES,URINE NEGATIVE (NEGATIVE); LEUKOCYTE ESTERASE ,URINE NEGATIVE (NEGATIVE); NITRITE, URINE NEGATIVE (NEGATIVE); PROTEIN,URINE NEGATIVE (NEGATIVE); UGLUCOSE NEGATIVE (NEGATIVE); UROBILINOGEN,URINE 0.2 EU/dL (0.2)
--- NOTE | 2019-04-02 06:52 | NUR ---
MS RN CLOSING PATIENT IN BED. A/O X4. ON 2L/MIN VIA NASAL CANNULA. RESPIRATIONS ARE EVEN AN UNLABORED. NO SOB NOTED. NO DISTRESS NOTED. IV ACCESS REMAINS IN RAC #20 PATENT AND RUNNING NS@100ML/HR. PATIENT REMAINS WITH THE LEFT UPPER AND FOREARM PATIETN IN A SPLINT, AND RIGHT ARM IN A SLING. ASHRAF CATHETER IS MAINTAINED, DRAINING TO GRAVITY, URINE IS YELLOW AND CLEAR. BED REMAINS LOW AND LOCKED, HOB ELEVATD 30 DEGREEES, SIDE RAILS UP X2. CALL LIGHT WITHIIN REACH. WILL ENDORSE TO NEXT SHIFT FOR GABRIELE.
--- NOTE | 2019-04-02 07:50 | NUR ---
MS RN OPENING NOTES RECEIVED PT IN BED, AWAKE, A/O X3-4. PT ON SUPPLEMENTARY OXYGEN AT 2LPM, WITH NO RESPIRATORY DISTRESS NOTED. PT STATED SHE HAS PAIN OF 9/10 DURING ROUNDS AND REQUESTING FOR MORPHINE. PT DENIES ANY CONCERNS OR QUESTIONS AT THE MOMENT. IVF NS AT 100ML/HR TO RAC G20, INTACT AND FLUID INFUSING WELL. RIGHT ARM SLING AND LEFT ARM SPLINT NOTED. FC IN PLACE WITH CLEAR YELLOW URINE IN THE BAG. PT KEPT COMFORTABLE. HOB ELEVATED. CALL LIGHT KEPT WITHIN REACH. BED IN LOWEST, LOCKED POSITION WITH SRX3. WILL CONTINUE PLAN OF CARE.
[2019-04-02] MEDS: LEVOTHYROXINE SODIUM 50 MCG TABLET PO SCH (07:59)
[2019-04-02 08:00] VITALS: BP 138/73
[2019-04-02 08:21] LABS: BACTERIA,URINE Few /HPF (None Seen); RBC,URINE 0-2 /HPF (0-2); SQUAMOUS EPITHELIAL CELL,UR Rare /HPF (None Seen); WBC,URINE 0-2 /HPF (0-3)
--- NOTE | 2019-04-02 08:29 | NUR ---
MS RN NOTES PT REFUSED TO HAVE THE SCAN SCHEDULED FOR TODAY AT THIS TIME. BENEFITS MADE AWARE. PT INSISTED TO REFUSE. MD/SK IN HE UNIT TO NOTIFY.
[2019-04-02] MEDS: CHOLECALCIFEROL (VITAMIN D 3) 400 UNIT TABLET PO SCH (08:50)
[2019-04-02] MEDS: SERTRALINE HCL 50 MG TABLET PO SCH (08:50)
--- NOTE | 2019-04-02 09:01 | NUR ---
MS RN NOTES PT JUST LEFT THE UNIT FOR CT OF [place].
[2019-04-02] MEDS ORDERED: Magnesium 1GM/D5W 100ML PREMIX 100 ML IV SCH (10:18)
[2019-04-02] MEDS: HYDROMORPHONE 1 MG/1 ML DISP.SYRIN IV PRN ×2 (11:51→23:29)
[2019-04-02 16:00] VITALS: BP 100/50
--- NOTE | 2019-04-02 18:57 | NUR ---
MS RN CLOSING NOTES PT IN BED, AWAKE, A/O X3-4. PT ON SUPPLEMENTARY OXYGEN AT 2LPM, WITH NO RESPIRATORY DISTRESS NOTED.PT COMFORTABLE RIGHT NOW, DENIES PAIN OR DISCOMFORT AT THIS TIME. IVF NS AT 125ML/HR TO RAC G20, INTACT AND FLUID INFUSING WELL. RIGHT ARM SLING AND LEFT ARM SPLINT NOTED. FC IN PLACE WITH CLEAR YELLOW URINE IN THE BAG. ALL NEEDS AND CARE PROVIDED. PT KEPT COMFORTABLE. HOB ELEVATED. CALL LIGHT KEPT WITHIN REACH. BED IN LOWEST, LOCKED POSITION WITH SRX3. WILL ENDORSE TO INCOMING NIGHT NURSE.
--- NOTE | 2019-04-02 19:35 | NUR ---
RN OPENING NOTES: RECEIVED REPORT FROM DOMENICO MURRY. FOUND Pt RESTING IN BED, AROUSABLE TO NAME. NO S/S OF ACUTE DISTRESS OR SOB NOTED. RESPIRATIONS EVEN AND UNLABORED WITH EQUAL CHEST RISE AND FALL. Pt IS A/OX4, VERBAL, ABLE TO MAKE NEEDS KNOWN. NO C/O PAIN AT THIS TIME, SAID SHE IS COMFORTABLE. ICE PACKS ON LAMIN ARMS. IV ACCESS ON RAC #20G; IVF NS @125ML/HR, INFUSING WELL. ASHRAF CATHETER IN PLACE, DRAINING WELL. PER REPORT Pt WILL BE NPO STARTING TONIGHT FOR L ELBOW ORIF WITH DR BOWEN ON 04/03/19. SAFETY MEASURES IN PLACE. BED LOW, LOCKED, HOB ELEVATED, SIDE RAILS UP, CALL LIGHT WITHIN REACH. BED ALARM ON. WILL CONTINUE TO MONITOR Pt's CONDITION AND SAFETY THROUGHOUT THE NIGHT.
[2019-04-02 20:00] VITALS: BP 121/67
[2019-04-02 20:30] VITALS: BP 121/67
[2019-04-03 00:01] VITALS: BP 115/61
[2019-04-03 04:00] VITALS: BP 115/61
[2019-04-03] MEDS: HYDROMORPHONE 1 MG/1 ML DISP.SYRIN IV PRN ×2 (05:48→12:06)
--- NOTE | 2019-04-03 06:40 | NUR ---
RN CLOSING NOTES NO SIGNIFICANT CHANGES IN Pt's CONDITION. Pt REMAINS STABLE PER BASELINE. NO S/S OF ACUTE DISTRESS OR SOB NOTED DURING THE NIGHT. Pt IS RESTING IN BED, WITH EVEN AND UNLABORED RESPIRATIONS WITH EQUAL CHEST RISE AND FALL. ALL NEEDS MET AND ATTENDED TO. SAFETY MEASURES IN PLACE. BED LOW, LOCKED, HOB ELEVATED, SIDE RAILS UP. ASHRAF OUTPUT 900CC. WILL ENDORSE TO DAYSHIFT RN FOR Pt's GABRIELE.
[2019-04-03 06:56] LABS: BASOPHILS # (AUTO) 0.1 /CMM (0.0-0.2); BASOPHILS % (AUTO) 0.5 % (0.0-2.0); EOSINOPHILS % (AUTO) 0.9 % (0.0-6.0); HEMATOCRIT 32 % (33-45); HEMOGLOBIN 10.8 g/dL (11.5-14.8); LYMPHOCYTES # (AUTO) 2.6 /CMM (0.8-4.8); LYMPHOCYTES % (AUTO) 21.4 % (20.0-44.0); MEAN CORPUSCULAR HGB CONC 34 g/dl (31.0-36.0); MEAN CORPUSCULAR VOLUME 96 fL (82-100); MONOCYTES # (AUTO) 1.5 /CMM (0.1-1.30); MONOCYTES % (AUTO) 12.1 % (2.0-12.0); NEUTROPHILS # (AUTO) 7.9 /CMM (1.8-8.9); NEUTROPHILS % (AUTO) 65.1 % (43.0-81.0); PLATELET COUNT (AUTO) 249 /CMM (150-450); RED BLOOD CELL COUNT(AUTO) 3.31 MIL/uL (4.0-5.2); WHITE BLOOD COUNT (AUTO) 12.1 K/uL (4.3-11.0)
[2019-04-03 06:59] LABS: ALBUMIN 2.8 g/dL (3.4-5.0); BILIRUBIN,TOTAL 0.5 mg/dL (0.2-1.0); CALCIUM, SERUM 8.3 mg/dL (8.5-10.1); CREATININE 0.7 mg/dL (0.6-1.3); MAGNESIUM 1.7 mg/dL (1.8-2.4); PHOSPHORUS 2.5 mg/dL (2.5-4.9); POTASSIUM 4.2 mmol/L (3.5-5.1); TOTAL PROTEIN, SERUM 6.4 g/dL (6.4-8.2)
[2019-04-03 07:07] LABS: THYROID STIMULATING HORMONE 1.599 uIU/mL (0.358-3.74)
--- NOTE | 2019-04-03 07:10 | NUR ---
MS RN OPENING NOTES RECEIVED PT IN BED, ASLEEP, EASILY AROUSED, A/O X3-4. PT ON SUPPLEMENTARY OXYGEN AT 2LPM, WITH NO RESPIRATORY DISTRESS NOTED. PT DENIES ANY PAIN OR DISCOMFORT AT THIS MOMENT. PT AWARE OF THE PLAN OF CARE TODAY, NPO AFTER 8AM, AND SURGERY AT 5PM. IVF NS AT 125ML/HR TO RAC G20, INTACT AND FLUID INFUSING WELL. RIGHT ARM SLING AND LEFT ARM SPLINT NOTED. FC IN PLACE WITH CLEAR YELLOW URINE IN THE BAG. PT KEPT COMFORTABLE. HOB ELEVATED. CALL LIGHT KEPT WITHIN REACH. BED IN LOWEST, LOCKED POSITION WITH SRX3. WILL CONTINUE PLAN OF CARE.
[2019-04-03] MEDS: LEVOTHYROXINE SODIUM 50 MCG TABLET PO SCH (07:37)
[2019-04-03 08:00] VITALS: BP 110/55
[2019-04-03] MEDS: IV NS 0.9% 1,000 ML IV PRN (08:24)
[2019-04-03] MEDS: MORPHINE SULFATE INJ 2 MG/ML DISP.SYRIN IV PRN ×2 (08:25→23:22)
[2019-04-03] MEDS: Magnesium 1GM/D5W 100ML PREMIX 100 ML IV SCH ×2 (08:31→09:42)
[2019-04-03] MEDS: SERTRALINE HCL 50 MG TABLET PO SCH (09:00)
[2019-04-03] MEDS: AMLODIPINE BESYLATE 5 MG TABLET PO SCH (09:00)
[2019-04-03] MEDS: CHOLECALCIFEROL (VITAMIN D 3) 400 UNIT TABLET PO SCH (09:00)
[2019-04-03] MEDS: ALPRAZOLAM 1 MG TABLET PO SCH ×2 (09:00→16:40)
--- NOTE | 2019-04-03 09:00 | NUR ---
INTERACTIVE PROJECT MANAGER NOTES PT PLACED TO TELE PER DR. BRYANT FOR 24 HOURS. PT MADE AWARE.
[2019-04-03 09:23] LABS: THYROID STIMULATING HORMONE 1.71 uIU/mL (0.358-3.74)
--- NOTE | 2019-04-03 09:32 | NUR ---
MINING TECHNICIAN NOTES PT SEEN AND EXAMINED BY ANESTHESIOLOGIST/DR MCCOY AND ORDERED ONE TIME DOSE OF ALBUTEROL RT TO GIVE AT 1500 FOR EMPHYSEMA. ORDER PLACED AND CALLED TO RT. DR MCCOY STATED "PT CAN HAVE APPLE JUICE UNTIL BEFORE 12PM, AFTER 12PM EVERYTHING NPO AND NO WATER AT BEDSIDE," GLUE SPECIALTY SUPERVISOR/RAYNA MADE AWARE WELL. PT AWARE OF THE PLAN WELL.
[2019-04-03 12:00] VITALS: BP 105/63
[2019-04-03] MEDS ORDERED: ANESTHESIA TRAY IN PYXIS 1 EA TRAY MC ONE (14:46)
[2019-04-03] MEDS ORDERED: BUPIVACAINE 0.5 % PF 150 MG/30 ML VIAL ONE (14:46)
[2019-04-03] MEDS ORDERED: BACITRACIN 50000 UNITS/VIAL ONE (14:46)
[2019-04-03] MEDS ORDERED: ALBUTEROL FS 2.5 MG/0.5 ML VIAL.NEB NEB ONE (15:00)
[2019-04-03 16:00] VITALS: BP 132/72
--- NOTE | 2019-04-03 16:30 | NUR ---
TMD TEACHER ASSISTANT NOTES PT LEFT THE UNIT AT 1625 TO GO TO OR. TRANSPORTED VIA BED. CONSENT SIGNED BY GUARDIAN/PARTNER/YONNY GOLDEN. PER PT SHE CAN'T SIGN D/T BOTH ARMS ARE INJURED. CN/YELENA/RN AWARE AND WITNESSED WELL.
[2019-04-03] MEDS ORDERED: ROCURONIUM BROMIDE 50 MG/5 ML ONE (16:55)
[2019-04-03] MEDS ORDERED: HYDROMORPHONE INJ 2 MG/ML DISP.SYRIN ONE (17:50)
--- NOTE | 2019-04-03 18:45 | NUR ---
EQUITY STRUCTURER CLOSING NOTES PT STILL NOT PRESENT AT THE UNIT. PT HAD LEFT ELBOW ORIF AT THE OR. WILL ENDORSE TO INCOMING NIGHT NURSE FOR GABRIELE.
--- NOTE | 2019-04-03 19:35 | NUR ---
RN OPENING NOTES RECEIVED REPORT FROM DOMENICO MURRY. Pt IS STILL IN OR FOR L ELBOW ORIF WITH DR BOWEN AND MARCUS GONZALEZ. WILL BE AWAITING FOR Pt TO RETURN TO FLOOR WITH POST-OP ORDERS.
[2019-04-03 20:00] VITALS: BP 108/65
[2019-04-03] MEDS ORDERED: BUPIVACAINE MPF 0.5% W/EPI INJ 30 ML VIAL ONE (20:53)
--- NOTE | 2019-04-03 21:50 | NUR ---
RN NOTES Pt ARRIVED TO THE FLOOR VIA GURNEY FROM OR. Pt IS AWAKE & ALERT, RESPONSIVE. NO S/S OF ACUTE DISTRESS OR SOB NOTED. VS STABLE. LEFT ARM WRAPPED IN RICKY BANDAGE. PER POST OP ORDER, 1ST DRESSING TO BE CHANGED BY MD ONLY. WILL PLACE POST-OP ORDERS AND CARRY THEM OUT ACCORDINGLY. SAFETY MEASURES IN PLACE. BED LOW, LOCKED, HOB ELEVATED, SIDE RAILS UP, CALL LIGHT PLACED IN HAND. WILL CONTINUE TO MONITOR Pt's CONDITION AND SAFETY THROUGHOUT THE NIGHT.
[2019-04-04] MEDS ORDERED: IV LR 1000 ML 1,000 ML IV PRN (01:00)
[2019-04-04] MEDS ORDERED: D5W IV SCH (01:30)
[2019-04-04] MEDS ORDERED: CEFAZOLIN IV SCH (01:30)
[2019-04-04] MEDS: HYDROMORPHONE 1 MG/1 ML DISP.SYRIN IV PRN ×3 (01:46→13:45)
[2019-04-04] MEDS ORDERED: CEFAZOLIN 1 GM ONE ×2 (04:41→04:43)
[2019-04-04] MEDS: CEFAZOLIN 2 GM in IV D5W 100 ML IV SCH ×2 (04:52→13:08)
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
--- NOTE | 2019-04-04 07:25 | NUR ---
TELE/RN NOTE THE PATIENT IS RECEIVED IN BED. AWAKE, ALERT AND ORIENTED X2. PATIENT IS CONFUSED AND YELLS WITH NO APPARENT DISTRESS. THE PATIENT HAS ASHRAF CATH WHICH IS DRAINING CLEAR, YELLOW COLOR URINE. LEFT ARM SPLINT AND RIGHT ARM SLING. RIGHT FOOT G 18 PATENT AND LR INFUSING AT 75ML/HR AND NO S/S INFILTRATION NOTED. BED LOW AND LOCKED. SIDE RAILS UP X3. CALL LIGHT WITHIN REACH. WILL CONTINUE TO MONITOR.
--- NOTE | 2019-04-04 07:26 | NUR ---
TELE/RN NOTE EXTERNAL TELE BOX READING IS SINUS TACHY 104.
[2019-04-04 08:00] VITALS: BP 116/57
--- NOTE | 2019-04-04 08:25 | NUR ---
TELE/RN NOTE PATIENT STILL COMPLAINS LEFT ARM PAIN 02/19. DOES NOT WANT PAIN MEDICATION AT THIS TIME. WILL OFFER AGAIN.
[2019-04-04] MEDS ORDERED: CHOL400T11 PO (08:30)
[2019-04-04] MEDS ORDERED: ACET325T53 PO (08:30)
[2019-04-04] MEDS ORDERED: ASPI-992 PO (08:30)
[2019-04-04] MEDS: LEVOTHYROXINE SODIUM 50 MCG TABLET PO SCH (08:37)
[2019-04-04] MEDS: CHOLECALCIFEROL (VITAMIN D 3) 400 UNIT TABLET PO SCH (08:37)
[2019-04-04] MEDS: SERTRALINE HCL 50 MG TABLET PO SCH (08:37)
[2019-04-04 08:38] VITALS: BP 116/57
[2019-04-04] MEDS: AMLODIPINE BESYLATE 5 MG TABLET PO SCH (08:38)
[2019-04-04] MEDS: ALPRAZOLAM 1 MG TABLET PO SCH (08:38)
[2019-04-04] MEDS ORDERED: ASPIRIN 325 MG TABLET PO SCH (09:00)
[2019-04-04] MEDS: MORPHINE SULFATE INJ 2 MG/ML DISP.SYRIN IV PRN (09:57)
--- NOTE | 2019-04-04 10:03 | NUR ---
TELE/ RN PATIENT COMPLAINED OF LEFT ARM PAIN 8/10. MORPHINE 2MG IV PUSH GIVEN. WILL CONTINUE TO MONITOR THE PATIENT.
--- NOTE | 2019-04-04 10:27 | NUR ---
MS/RN NOTE PATIENT VERBALIZED MORPHINE PAIN MEDICATION BEING EFFECTIVE DESPITE RATING LEFT ARM PAIN 7/10. THE PATIENT DOES NOT WANT PAIN MEDICATION AT THIS TIME. WILL CONTINUE TO MONITOR.
[2019-04-04 10:42] LABS: BASOPHILS # (AUTO) 0.1 /CMM (0.0-0.2); BASOPHILS % (AUTO) 0.6 % (0.0-2.0); EOSINOPHILS % (AUTO) 0.1 % (0.0-6.0); HEMATOCRIT 31 % (33-45); HEMOGLOBIN 10.5 g/dL (11.5-14.8); LYMPHOCYTES # (AUTO) 2.2 /CMM (0.8-4.8); LYMPHOCYTES % (AUTO) 13.4 % (20.0-44.0); MEAN CORPUSCULAR HGB CONC 34 g/dl (31.0-36.0); MEAN CORPUSCULAR VOLUME 94 fL (82-100); MONOCYTES # (AUTO) 1.7 /CMM (0.1-1.30); MONOCYTES % (AUTO) 10.6 % (2.0-12.0); NEUTROPHILS # (AUTO) 12.4 /CMM (1.8-8.9); NEUTROPHILS % (AUTO) 75.3 % (43.0-81.0); PLATELET COUNT (AUTO) 284 /CMM (150-450); RED BLOOD CELL COUNT(AUTO) 3.27 MIL/uL (4.0-5.2); WHITE BLOOD COUNT (AUTO) 16.4 K/uL (4.3-11.0)
[2019-04-04 11:02] LABS: CALCIUM, SERUM 8.2 mg/dL (8.5-10.1); CREATININE 0.6 mg/dL (0.6-1.3); POTASSIUM 3.5 mmol/L (3.5-5.1)
[2019-04-04 11:06] LABS: *SPE A/G RATIO 0.9 (0.7-1.7); *SPE ALBUMIN 2.8 g/dL (2.9-4.4); *SPE ALPHA-1-GLOBULIN 0.3 g/dL (0.0-0.4); *SPE ALPHA-2-GLOBULIN 0.9 g/dL (0.4-1.0); *SPE BETA GLOBULIN 0.9 g/dL (0.7-1.3); *SPE GLOBULIN, TOTAL 3.1 g/dL (2.2-3.9); *SPE M-SPIKE Not Observed g/dL (Not Observed); PTH, INTACT 35 pg/mL (15-65)
--- NOTE | 2019-04-04 11:53 | NUR ---
MS RN NOTES RECEIVED NEW ORDER FROM DOCTOR TRINA, CARDIAC FINELY CHOPPED DIET ORDER. ALSO LOVENOX 40 MG SQ Q24H. ORDERS READ BACK AND VERIFIED. NOTED AND CARRIED OUT.
[2019-04-04] MEDS ORDERED: ENOXAPARIN SODIUM 40 MG/0.4 ML DISP.SYRIN SQ SCH (12:00)
--- NOTE | 2019-04-04 17:02 | NUR ---
MS/RN NOTE THE PATIENT IS ALERT AND ORIENTED X3. DENIES PAIN AT THIS TIME. RECEIVING OXYGEN AT 2L/MIN VIA NASAL CANNULA DN SATURATION IS AT 93%. RESPIRATION REGULAR AND UNLABORED. THE PATIENT IN STABLE CONDITION. ASHRAF CATH PRESENT AND DRAINING CLEAR, YELLOW COLOR URINE. LEFT ARM SPLINT ON, RIGHT ARM SLING ON AND NO S/S POOR CIRCULATION NOTED. DISCHARGE EDUCATION PROVIDED TO THE PATIENT AND SHE VERBALIZED UNDERSTANDING. THE PATIENT`S REPORT IS GIVEN TO RECEIVING NURSE JOAQUIN. SOME OF THE PATIENT`S BELONGING NOT FOUND, MADE CHANGE NURSE, PATIENT AWARE. LEFT MESSAGE TO RESPONSIBLE [employer] YONNY. NO CALL BACK YET. THE PATIENT LEFT THE HOSPITAL ON A GURNEY VIA AMBULANCE. Addendum: 04/05/19 at 1335 by PETE GARZA RN MS/RN NOTE THE PATIENT REFUSED SKIN ASSESSMENT UPON DISCHARGE. PATIENT WAS EXPLAINED RISKS AND BENEFITS BUT THE PATIENT STILL REFUSED.
--- NOTE | 2019-04-05 13:31 | NUR ---
MS/RN NOTE RECEIVED A CALL FROM BOYFRIENNereyda BLANCAS AND HE SAID THAT HE TOOK THE PATIENT`S ANKLE BRACELET SILVER COLOR (1) AND ANKLE BRACELET CORONADO (1), BRACELET YELLOW COLOR, [facility].
== END 2019-04-04 17:00 | DRG 510 ==
LOC: ER 20:19 → MED 22:15 → TELE 04-03 09:09 → MED 04-04 10:10
PROVIDERS: ADMIT Nurse Practitioner Acute Care; ATTEND Student in an Organized Health Care Education/Training Program
PROC: 0PSJ04Z Reposition Left Radius with Internal Fixation Device, Open Approach (ICD-10-PCS; principal; 2019-04-03)
PROC: 0PSL04Z Reposition Left Ulna with Internal Fixation Device, Open Approach (ICD-10-PCS; 2019-04-03)
PROC: 0PRJ0JZ Replacement of Left Radius with Synthetic Substitute, Open Approach (ICD-10-PCS; 2019-04-03)
DX: S52.042A Displaced fracture of coronoid process of left ulna, initial encounter for closed fracture (principal); N17.0 Acute kidney failure with tubular necrosis; S42.211A Unspecified displaced fracture of surgical neck of right humerus, initial encounter for closed fracture; M62.82 Rhabdomyolysis; S22.42XA Multiple fractures of ribs, left side, initial encounter for closed fracture; W06.XXXA Fall from bed, initial encounter; Y92.003 Bedroom of unspecified non-institutional (private) residence as the place of occurrence of the external cause; M81.0 Age-related osteoporosis without current pathological fracture; I10 Essential (primary) hypertension; Z91.81 History of falling; Z86.59 Personal history of other mental and behavioral disorders; Z85.3 Personal history of malignant neoplasm of breast; Z79.899 Other long term (current) drug therapy; E78.5 Hyperlipidemia, unspecified; Z88.6 Allergy status to analgesic agent; Z88.5 Allergy status to narcotic agent; G47.00 Insomnia, unspecified; F03.90 Unspecified dementia, unspecified severity, without behavioral disturbance, psychotic disturbance, mood disturbance, and anxiety; F17.200 Nicotine dependence, unspecified, uncomplicated; E03.9 Hypothyroidism, unspecified; D17.9 Benign lipomatous neoplasm, unspecified; G89.4 Chronic pain syndrome; J44.9 Chronic obstructive pulmonary disease, unspecified; M48.02 Spinal stenosis, cervical region; N28.1 Cyst of kidney, acquired; M19.90 Unspecified osteoarthritis, unspecified site; E86.9 Volume depletion, unspecified; D72.829 Elevated white blood cell count, unspecified; S52.122A Displaced fracture of head of left radius, initial encounter for closed fracture; S52.022A Displaced fracture of olecranon process without intraarticular extension of left ulna, initial encounter for closed fracture
CPT/HCPCS: 36415; 70450-TC; 71045-TC; 72125-TC; 73060-TC; 73070-TC; 73090-TC; 73200-TC; 76770-TC; 80048-TC; 80053-TC; 80061-TC; 81000-TC; 82550-TC; 82728-TC; 83540-TC; 83735-TC; 83970; 84100-TC; 84155; 84165; 84439-TC; 84443-TC; 85025-TC; 85610-TC; 85730-TC; 86850-TC; 87081-TC; 87086-TC; 88305-TC; 88311-TC; 93307-TC; 97110-TC; 97112-TC; 97116-TC; 97530-TC; 97535-TC; G0378; J0690; J1100; J1170; J1650; J2270; J2405; J2704; J3475; J3490; J7030; J7060; J7120

== ENCOUNTER 2019-05-17 13:14 | Inpatient (IN) | payer MEDICARE, OTHER ==
[~2019-05-17] VITALS: Ht 160 cm; Wt 41.5 kg
[~2019-05-17 13:14] MED LIST changes: +ACET325T53 PO; +ASPI-992 PO; +CHOL400T11 PO
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
--- NOTE | 2019-05-17 13:49 | NUR ---
JENNY LUKE AT BEDSIDE
--- NOTE | 2019-05-17 13:57 | NUR ---
KARO MONTAÑO Addendum: 05/17/19 at 1358 by SARATH THIS IS FOR EVANGELISTA 01
[2019-05-17] MEDS ORDERED: CEFAZOLIN 1 GM in IV D5W 50 ML IV ONE (14:00)
[2019-05-17] MEDS ORDERED: oxyCODONE/APAP (5/325 MG) 1 UDTAB TABLET PO ONE ×2 (14:00→15:00)
--- NOTE | 2019-05-17 14:05 | NUR ---
CALLED [facility]TH[facility] [phone] ITS KEARA
--- NOTE | 2019-05-17 14:07 | NUR ---
KARO PAGED ITS DR. MONTAÑO
[2019-05-17 14:15] LABS: BASOPHILS # (AUTO) 0.1 /CMM (0.0-0.2); BASOPHILS % (AUTO) 0.8 % (0.0-2.0); EOSINOPHILS % (AUTO) 0.8 % (0.0-6.0); HEMATOCRIT 42 % (33-45); HEMOGLOBIN 13.3 g/dL (11.5-14.8); LYMPHOCYTES # (AUTO) 2.8 /CMM (0.8-4.8); LYMPHOCYTES % (AUTO) 22.6 % (20.0-44.0); MEAN CORPUSCULAR HGB CONC 32 g/dl (31.0-36.0); MEAN CORPUSCULAR VOLUME 92 fL (82-100); MONOCYTES # (AUTO) 1.1 /CMM (0.1-1.30); MONOCYTES % (AUTO) 8.7 % (2.0-12.0); NEUTROPHILS # (AUTO) 8.3 /CMM (1.8-8.9); NEUTROPHILS % (AUTO) 67.1 % (43.0-81.0); PLATELET COUNT (AUTO) 435 /CMM (150-450); WHITE BLOOD COUNT (AUTO) 12.4 K/uL (4.3-11.0)
[2019-05-17 14:21] LABS: CALCIUM, SERUM 9.6 mg/dL (8.5-10.1); CREATININE 0.9 mg/dL (0.6-1.3); POTASSIUM 4.5 mmol/L (3.5-5.1)
--- NOTE | 2019-05-17 14:25 | NUR ---
SUBMITTED MOVE SHEET TO ADMITTING AND CALLED FOR MS BED
[2019-05-17] MEDS ORDERED: oxyCODONE/APAP (5/325 MG) 1 UDTAB TABLET ONE ×2 (14:44→15:08)
[2019-05-17 15:00] VITALS: BP 141/79
--- NOTE | 2019-05-17 15:42 | NUR ---
313-2,JOHN GUILLEN ASSIGNED
--- NOTE | 2019-05-17 15:52 | NUR ---
REPORT GIVEN TO JOHN PATEL MS
--- NOTE | 2019-05-17 16:00 | NUR ---
MS/RN Patient admitted from ER, c/o pain on left elbow wound due to infection. Skin is worm and dry to touch, took picture on left elbow, right elbow, and sacral bed ulcer. ATB started via IV. No s/s of side effect from ATB. Will continue to monitor.
[2019-05-17] MEDS ORDERED: MAG HYDROX/AL HYDROX/SIMETH 30 ML UDC PO PRN (17:00)
[2019-05-17] MEDS ORDERED: Z GUARD REMEDY 2 OZ OINT TP PRN (17:00)
[2019-05-17] MEDS ORDERED: ONDANSETRON HCL/PF 4 MG/2 ML VIAL IVP PRN (17:00)
[2019-05-17] MEDS ORDERED: MAGNESIUM HYDROXIDE 30 ML UDC PO PRN (17:00)
[2019-05-17] MEDS ORDERED: FEE PK DOSING 1 MIN EA MC ONE (17:34)
[2019-05-17] MEDS: IV NS 0.9% 1,000 ML IV PRN (17:44)
[2019-05-17] MEDS ORDERED: VANCOMYCIN 0.75 GM in IV D5W 250 ML IV ONE (19:00)
[2019-05-17] MEDS: PIPERACILLIN /TAZOBACTAM 3.375 G in IV D5W 50 ML IV SCH (19:36)
--- NOTE | 2019-05-17 19:45 | NUR ---
RN OPENING NOTES RECEIVED REPORT FROM DAYSHIFT WILMER BAUTISTA. FOUND Pt AWAKE, RESTING IN BED. NO S/S OF ACUTE DISTRESS OR SOB NOTED. Pt IS A/OX3, FORGETFUL AT TIMES, BUT IS VERBAL, AND ABLE TO MAKE NEEDS KNOWN. IV ACCESS ON RAC #20G IVF NS @75ML/HR. Pt IS CLEARED FOR PROCEDURE TOMORROW OF LEFT ELBOW WASHOUT WITH REMOVAL OF HARDWARE AND APPLICATION OF WOUND VAC. WILL HAVE CONSENT READY TO BE SIGNED. SAFETY MEASURES IN PLACE. BED LOW, LOCKED, HOB ELEVATED, SIDE RAILS UP, CALL LIGHT AND BEDSIDE TABLE WITHIN REACH. WILL CONTINUE TO MONITOR Pt's CONDITION AND SAFETY THROUGHOUT THE NIGHT.
--- NOTE | 2019-05-17 19:51 | NUR ---
MS RN NOTES PATIENT IN BED RESTING NO SOB OR ACUTE DISTRESS NOTED. ALL DUE MEDICATIONS ADMINISTERED. ALL NEEDS MET. NO ACUTE CHANGES NOTED. ENDORSED CARE TO PM SHIFT.
--- NOTE | 2019-05-17 20:00 | NUR ---
RN NOTES Pt SIGNED CONSENT FORM FOR LEFT ELBOW WASHOUT WITH REMOVAL OF HARDWARE AND APPLICATION OF WOUND VAC. PROCEDURE IS SCHEDULED FOR 05/18/19 @0900. SPOKE WITH DAUGHTER MIKEL ON THE PHONE, & IS AWARE OF THE PROCEDURE FOR TOMORROW. CONSENT SIGNED AND PLACED IN CHART.
[2019-05-17 20:16] VITALS: BP 126/76
[2019-05-17] MEDS: HYDROCODONE/APAP 5/325MG 1 EACH TABLET PO PRN (20:47)
[2019-05-17] MEDS: ENOXAPARIN SODIUM 40 MG/0.4 ML DISP.SYRIN SQ SCH (21:00)
[2019-05-17] MEDS: ZOLPIDEM TARTRATE 5 MG TABLET PO PRN (23:38)
[2019-05-18] MEDS: PIPERACILLIN /TAZOBACTAM 3.375 G in IV D5W 50 ML IV SCH ×5 (04:21→23:54)
--- NOTE | 2019-05-18 06:45 | NUR ---
RN CLOSING NOTES NO SIGNIFICANT CHANGES IN Pt's CONDITION. ALL NEEDS MET AND ATTENDED TO SAFETY. SAFETY MEASURES IN PLACE. Pt RESTING IN BED WITH EQUAL CHEST RISE AND FALL. NO S/S OF ACUTE DISTRESS OR SOB NOTED DURING THE NIGHT. WILL ENDORSE TO DAYSHIFT RN FOR Pt's GABRIELE.
[2019-05-18 07:21] LABS: BASOPHILS # (AUTO) 0.1 /CMM (0.0-0.2); BASOPHILS % (AUTO) 0.7 % (0.0-2.0); EOSINOPHILS % (AUTO) 0.9 % (0.0-6.0); HEMATOCRIT 37 % (33-45); HEMOGLOBIN 12.3 g/dL (11.5-14.8); LYMPHOCYTES # (AUTO) 2.8 /CMM (0.8-4.8); LYMPHOCYTES % (AUTO) 27.1 % (20.0-44.0); MEAN CORPUSCULAR HGB CONC 33 g/dl (31.0-36.0); MEAN CORPUSCULAR VOLUME 90 fL (82-100); MONOCYTES # (AUTO) 1.1 /CMM (0.1-1.30); MONOCYTES % (AUTO) 10.6 % (2.0-12.0); NEUTROPHILS # (AUTO) 6.2 /CMM (1.8-8.9); NEUTROPHILS % (AUTO) 60.7 % (43.0-81.0); PLATELET COUNT (AUTO) 373 /CMM (150-450); WHITE BLOOD COUNT (AUTO) 10.3 K/uL (4.3-11.0)
[2019-05-18 07:26] LABS: CALCIUM, SERUM 8.6 mg/dL (8.5-10.1); CARBON DIOXIDE 27 mmol/L (21-32); CHLORIDE 101 mmol/L (98-107); CREATININE 0.5 mg/dL (0.6-1.3); GLUCOSE 109 mg/dL (74-106); MAGNESIUM 1.7 mg/dL (1.8-2.4); POTASSIUM 3.5 mmol/L (3.5-5.1); SODIUM SERUM 140 mmol/L (136-145); UREA NITROGEN, BLOOD 11 mg/dL (7-18)
[2019-05-18 07:41] LABS: CHOLESTEROL 158 mg/dL (<200); HDL CHOLESTEROL 37 mg/dL (40-60); LDL 96 mg/dL (0-99); THYROID STIMULATING HORMONE 2.111 uIU/mL (0.358-3.74); TRIGLYCERIDES 123 mg/dL (30-150)
[2019-05-18 08:00] VITALS: BP 143/59
--- NOTE | 2019-05-18 08:00 | NUR ---
MS RN RECEIVED ON BED, AWAKE,ALERT,ORIENTED X3,NOT IN DISTRESS, RESPIRATIONS EVEN AND UNLABORED,NO SOB NOTED, LUNGS ARE DIMINISH, ABDOMEN SOFT,POSITIVE BOWEL SOUNDS, DENIES PAIN AT THIS TIME, ALL NEEDS ATTENDED.
--- NOTE | 2019-05-18 09:00 | NUR ---
MS WILMER HELD [facility], PATIENT WILL HAVE SX/REVISION OF ELBOW IMPLANT, WILL MONITOR PATIENT.
[2019-05-18] MEDS: VANCOMYCIN 500 MG in IV D5W 100 ML IV SCH ×2 (09:47→20:43)
[2019-05-18] MEDS: PANTOPRAZOLE 40 MG TABLET.DR PO SCH (09:53)
[2019-05-18] MEDS ORDERED: MIDAZOLAM HCL 2 MG/2ML VIAL ONE (10:22)
[2019-05-18] MEDS ORDERED: FENTANYL PF 100MCG/2ML AMPUL ONE ×2 (10:23→13:49)
--- NOTE | 2019-05-18 11:30 | NUR ---
MS RN PATIENT WENT DOWN FOR PROCEDURE.
[2019-05-18] MEDS ORDERED: BACITRACIN 50000 UNITS/VIAL ONE (11:39)
[2019-05-18] MEDS ORDERED: BUPIVACAINE 0.5 % PF 150 MG/30 ML VIAL ONE (11:39)
[2019-05-18] MEDS: Magnesium 1GM/D5W 100ML PREMIX 100 ML IV SCH ×4 (12:00→17:37)
[2019-05-18] MEDS ORDERED: VANCOMYCIN 1 GM VIAL ONE (12:52)
[2019-05-18] MEDS ORDERED: LABETALOL HCL IV 100MG VIAL ONE (13:48)
--- NOTE | 2019-05-18 14:30 | NUR ---
MS RN PATIENT CAME BACK, AWAKE,ALERT,ORIENTED X2-3, LEFT SHOULDER COVERED W/ PRESSURE DRESSING, DRY AND INTACT.WILL MONITOR PATIENT.
[2019-05-18 15:55] VITALS: BP 147/79
[2019-05-18] MEDS: HYDROCODONE/APAP 5/325MG 1 EACH TABLET PO PRN ×2 (17:42→21:40)
[2019-05-18] MEDS: IV NS 0.9% 1,000 ML IV PRN (17:42)
--- NOTE | 2019-05-18 19:30 | NUR ---
MS JUANA INITIAL NOTES RECEIVED REPORT FROM AM NURSE JERAD AND SEEN PT IN BED RESTING WITH EYES CLOSED BUT AROUSE TO TOUCH. DENIES ANY PAIN OR ANY DISCOMFORT. NO SIGNS OF ANY ACUTE DISTRESS NOTED. IVF STILL INFUSING. , DRESSING ON HIS LEFT ELBOW DRESSING DRY AND INTACT. KEPT HER WARM AND COMFORTABLE AT ALL TIMES. PLACE CALL LIGHT AT REACH. WILL CONTINUE MONITORING.
[2019-05-18 20:00] VITALS: BP 119/64
[2019-05-18] MEDS: ENOXAPARIN SODIUM 40 MG/0.4 ML DISP.SYRIN SQ SCH ×2 (21:39→21:48)
--- NOTE | 2019-05-18 21:40 | NUR ---
ms ale notes c/o left elbow pain, norco tablet given as ordered. will continue monitoring.
--- NOTE | 2019-05-18 21:48 | NUR ---
ms ale notes pt refused lovenox even i told her the purpose of lovenox, aware.
[2019-05-18] MEDS: MUPIROCIN OINT 2% 22 GM TUBE SCH (22:30)
--- NOTE | 2019-05-18 22:30 | NUR ---
ms ale notes per md is its ok to start the bactroban in am . pt resting at this time.
[2019-05-19] MEDS: ACETAMINOPHEN 325 MG TABLET PO PRN ×2 (00:14→09:44)
[2019-05-19] MEDS: HYDROCODONE/APAP 5/325MG 1 EACH TABLET PO PRN ×4 (06:27→20:09)
--- NOTE | 2019-05-19 06:27 | NUR ---
ms college service officer notes norco tablet given po as ordered per pt requested for pain on her left elbow .
[2019-05-19] MEDS: PIPERACILLIN /TAZOBACTAM 3.375 G in IV D5W 50 ML IV SCH ×3 (06:30→17:45)
--- NOTE | 2019-05-19 07:40 | NUR ---
ms director of catering sales closing notes pt resting at this time after norco tablet given but arouse to touch. she states sometimes pain on and off. specially when she's moving . dressing still dry and intact. hemovac still intact no output noted . all due meds given and all needs met. kept her warm and comfortable at all times. bed alarm set and side rails up x2 for safety. endorse to am nurse for continuity of care. place call light at reach.
[2019-05-19 08:00] VITALS: BP 139/64
--- NOTE | 2019-05-19 08:00 | NUR ---
MS RN OPENING NOTES Received Patient awake and resting in bed. A/O x 3. VS stable with no acute distress. Breathing even and unlabored on room air with no respiratory distress. No complaints of pain nor discomfort at this time. 20g PIV on ARACELIS clean, intact, patent and flushing well with NS infusing at 75ml/hr. Isolation precautions in place. Safety precautions in place. Bed locked and set to lowest position with side rails x 2 up. All needs rendered at this time. Call light within reach. Will continue to monitor.
[2019-05-19 08:16] LABS: BASOPHILS # (AUTO) 0.1 /CMM (0.0-0.2); BASOPHILS % (AUTO) 1.1 % (0.0-2.0); EOSINOPHILS % (AUTO) 1.3 % (0.0-6.0); HEMATOCRIT 36 % (33-45); HEMOGLOBIN 11.5 g/dL (11.5-14.8); LYMPHOCYTES # (AUTO) 3.1 /CMM (0.8-4.8); LYMPHOCYTES % (AUTO) 35.8 % (20.0-44.0); MEAN CORPUSCULAR HGB CONC 32 g/dl (31.0-36.0); MEAN CORPUSCULAR VOLUME 91 fL (82-100); MONOCYTES # (AUTO) 0.8 /CMM (0.1-1.30); MONOCYTES % (AUTO) 9.2 % (2.0-12.0); NEUTROPHILS # (AUTO) 4.5 /CMM (1.8-8.9); NEUTROPHILS % (AUTO) 52.6 % (43.0-81.0); PLATELET COUNT (AUTO) 379 /CMM (150-450); RED BLOOD CELL COUNT(AUTO) 3.91 MIL/uL (4.0-5.2); WHITE BLOOD COUNT (AUTO) 8.6 K/uL (4.3-11.0)
[2019-05-19 09:03] LABS: CALCIUM, SERUM 8.2 mg/dL (8.5-10.1); CREATININE 0.6 mg/dL (0.6-1.3); MAGNESIUM 1.8 mg/dL (1.8-2.4); PHOSPHORUS 2.6 mg/dL (2.5-4.9); POTASSIUM 3.6 mmol/L (3.5-5.1)
[2019-05-19] MEDS: MUPIROCIN OINT 2% 22 GM TUBE SCH ×2 (09:44→20:12)
[2019-05-19] MEDS: PANTOPRAZOLE 40 MG TABLET.DR PO SCH (09:44)
--- NOTE | 2019-05-19 10:00 | NUR ---
MS RN NOTES Patient had bowel movement at this time. Patient refused to change sacral wound dressing. Per Patient, "I am comfortable at this time, I do not want to move." Will continue to monitor.
[2019-05-19] MEDS ORDERED: VANCOMYCIN 1 GM in IV D5W 250 ML IV SCH (11:00)
[2019-05-19] MEDS: VANCOMYCIN 0.75 GM in IV D5W 250 ML IV SCH ×2 (11:31→22:22)
[2019-05-19 16:00] VITALS: BP 139/89
--- NOTE | 2019-05-19 18:00 | NUR ---
MS RN NOTES Patient refused to change sacral wound dressing. Explained risks and benefits to Patient. Patient still refuses. Will continue to monitor.
--- NOTE | 2019-05-19 18:50 | NUR ---
MS WILMER OPENING NOTES Patient awake and resting in bed. A/O x 3. VS stable with no acute distress. Breathing even and unlabored on room air with no respiratory distress. Patient stated left elbow pain 01/19. Administered [place] 5-325mg at 1555. Will endorse to oncoming shift. 20g PIV on ARACELIS clean, intact, patent and flushing well with NS infusing at 75ml/hr. Isolation precautions in place. Safety precautions in place. Bed locked and set to lowest position with side rails x 2 up. All needs rendered at this time. Call light within reach. Will continue to monitor. Addendum: 05/19/19 at 1852 by MENDEZ APARICIO RN Will endorse plan of care to oncoming shift.
--- NOTE | 2019-05-19 18:52 | NUR ---
MS RN CLOSING NOTES Patient awake and resting in bed. A/O x 3. VS stable with no acute distress. Breathing even and unlabored on room air with no respiratory distress. Patient stated left elbow pain 01/19. Administered [place] 5-325mg at 1555. Will endorse to oncoming shift. 20g PIV on ARACELIS clean, intact, patent and flushing well with NS infusing at 75ml/hr. Isolation precautions in place. Safety precautions in place. Bed locked and set to lowest position with side rails x 2 up. All needs rendered at this time. Call light within reach. Will endorse plan of care to oncoming shift.
--- NOTE | 2019-05-19 20:00 | NUR ---
MS RN CLOSING NOTES Patient in bed resting comfortably. A/O x 3. VS stable with no acute distress. Breathing even and unlabored on room air with no respiratory distress. PIV on ARACELIS 20g patent and intact, flushing well with NS infusing at 75ml/hr. Isolation precautions in place. Patient c/o pain on sacral area on pain scale of 7/10. Administered PRN [place] as ordered. Safety precautions implemented. Bed locked and set to lowest position with side rails x 2 up. All needs rendered at this time. Call light within reach. Addendum: 05/20/19 at 0640 by RAMBO WELLS RN MS RN OPENING NOTES
[2019-05-19 20:37] VITALS: BP 154/81
[2019-05-19] MEDS: ZOLPIDEM TARTRATE 5 MG TABLET PO PRN (23:00)
[2019-05-20] MEDS: PIPERACILLIN /TAZOBACTAM 3.375 G in IV D5W 50 ML IV SCH ×4 (00:35→18:16)
[2019-05-20] MEDS: HYDROCODONE/APAP 5/325MG 1 EACH TABLET PO PRN ×3 (04:58→18:15)
--- NOTE | 2019-05-20 06:57 | NUR ---
RN CLOSING NOTES PATIENT ASLEEP, AROUSES EASILY, NO ACUTE DISTRESS NOTED. NO SIGNFICANT CHANGE OF CONDITION DURING THE SHIFT. PIV ON R WRIST PATENT AND INTACT. REPOSITIONED FOR COMFORT. ALL NEEDS ATTENDED AND PROVIDED. ALL DUE MEDICATIONS GIVEN ORDERED. SAFETY PRECAUTIONS IN PLACE. BED IN LOWEST LOCKED POSITION. SIDERAILS UPX2, CALL LIGHT WITHIN REACH.
[2019-05-20 08:00] VITALS: BP 139/64
--- NOTE | 2019-05-20 08:00 | NUR ---
MS RN OPENING NOTES Received Patient awake and resting in bed. A/O x 3. VS stable with no acute distress. Breathing even and unlabored on room air with no respiratory distress. Patient stated 10/10 generalized pain. Will intervene as ordered. 20g PIV on ARACELIS clean, intact, patent and flushing well with NS infusing at 75ml/hr. Wound dressings clean and intact. Isolation precautions in place. Safety precautions in place. Bed locked and set to lowest position with side rails x 2 up. All needs rendered at this time. Call light within reach. Will continue to monitor.
[2019-05-20 08:20] LABS: CALCIUM, SERUM 8.5 mg/dL (8.5-10.1); CARBON DIOXIDE 28 mmol/L (21-32); CHLORIDE 103 mmol/L (98-107); CREATININE 0.5 mg/dL (0.6-1.3); GLUCOSE 124 mg/dL (74-106); SODIUM SERUM 140 mmol/L (136-145); UREA NITROGEN, BLOOD 3 mg/dL (7-18)
[2019-05-20 08:29] LABS: POTASSIUM 2.6 mmol/L (3.5-5.1)
[2019-05-20] MEDS: PANTOPRAZOLE 40 MG TABLET.DR PO SCH (09:20)
[2019-05-20] MEDS: MUPIROCIN OINT 2% 22 GM TUBE SCH ×2 (09:21→20:34)
[2019-05-20] MEDS ORDERED: POTASSIUM CHLORIDE 20 MEQ TAB.PRT.SR PO ONE (10:00)
[2019-05-20] MEDS: POTASSIUM CL. PREMIX PERIPHER. 50 ML IV SCH ×4 (10:32→15:54)
[2019-05-20] MEDS: IV NS 0.9% 1,000 ML IV PRN (10:39)
[2019-05-20] MEDS: DAKINS QUARTER STRENGTH (0.125%) 480 ML BOTTLE TOP SCH (11:30)
[2019-05-20] MEDS: VANCOMYCIN 0.75 GM in IV D5W 250 ML IV SCH ×2 (11:51→23:38)
[2019-05-20 16:00] VITALS: BP 139/89
[2019-05-20] MEDS: Potassium Chloride 10 MEQ, LIDOCAINE HCL/PF 1% 1 ML in IV NS 0.9% 50 ML IV SCH ×3 (18:16→20:32)
--- NOTE | 2019-05-20 19:45 | NUR ---
MS/RN NOTES RECEIVED PT. LYING IN BED. PT. IS AWAKE, ALERT AND ORIENTED X3. BREATHING EVEN AND UNLABORED ON ROOM AIR. NO SOB, RESPIRATORY DISTRESS OR COMPLAINTS OF PAIN NOTED AT THIS TIME. PT. WITH RIGHT WRIST 20 GAUGE PERIPHERAL IV PRESENT, PATENT AND INTACT ADMINISTERING TO PT. NS @ 75 ML/HR. PT. WITH LEFT ARM DRESSING PRESENT, CLEAN, DRY AND INTACT. PT. DOES NOT WANT LEFT ARM TO BE TOUCHED. ISOLATION AND SAFETY PRECAUTIONS IMPLEMENTED AND IN PLACE. BED LOCKED AND IN LOWEST POSITION, SIDE RAILS UP X2, BED ALARM ON, CALL LIGHT WITHIN REACH, WILL CONTINUE TO MONITOR.
--- NOTE | 2019-05-20 19:56 | NUR ---
MS RN CLOSING NOTES Patient awake and resting in bed. A/O x 3 with episodes of forgetfulness. VS stable with no acute distress. Breathing even and unlabored on room air with no respiratory distress. Patient stated pain level 10/10 left elbow. Administered [place] 5-325mg at 1815. Will endorse plan of care to oncoming shift. 20g PIV on ARACELIS clean, intact, patent and flushing well with NS infusing at 75ml/hr. Wound dressings clean and intact. Isolation precautions in place. Safety precautions in place. Bed locked and set to lowest position with side rails x 2 up. All needs rendered at this time. Call light within reach. Will endorse plan of care to oncoming.
[2019-05-20 20:00] VITALS: BP 140/91
[2019-05-20] MEDS: ENOXAPARIN SODIUM 40 MG/0.4 ML DISP.SYRIN SQ SCH (21:00)
[2019-05-21] MEDS: PIPERACILLIN /TAZOBACTAM 3.375 G in IV D5W 50 ML IV SCH ×3 (00:56→13:16)
[2019-05-21] MEDS: ZOLPIDEM TARTRATE 5 MG TABLET PO PRN ×2 (00:58→20:51)
[2019-05-21] MEDS: IV NS 0.9% 1,000 ML IV PRN ×2 (06:38→16:34)
[2019-05-21 06:45] LABS: CALCIUM, SERUM 9.5 mg/dL (8.5-10.1); CARBON DIOXIDE 27 mmol/L (21-32); CHLORIDE 104 mmol/L (98-107); CREATININE 0.4 mg/dL (0.6-1.3); GLUCOSE 134 mg/dL (74-106); POTASSIUM 3.2 mmol/L (3.5-5.1); SODIUM SERUM 140 mmol/L (136-145); UREA NITROGEN, BLOOD 3 mg/dL (7-18)
--- NOTE | 2019-05-21 06:55 | NUR ---
MS/RN NOTES PT. IS LYING IN BED RESTING. BREATHING EVEN AND UNLABORED ON ROOM AIR. NO SOB, RESPIRATORY DISTRESS OR COMPLAINTS OF PAIN NOTED AT THIS TIME. PT. WITH RIGHT WRIST 20 GAUGE PERIPHERAL IV PRESENT, PATENT AND INTACT ADMINISTERING TO PT. NS @ 75 ML/HR. ALL PT. NEEDS MET. ISOLATION AND SAFETY PRECAUTIONS IMPLEMENTED AND IN PLACE. BED LOCKED AND IN LOWEST POSITION, SIDE RAILS UP X2, BED ALARM ON, CALL LIGHT WITHIN REACH, WILL ENDORSE TO DAYSHIFT NURSE FOR CONTINUITY OF CARE.
--- NOTE | 2019-05-21 07:20 | NUR ---
MS/RN NOTE THE PATIENT IS RECEIVED IN BED. ALERT AND ORIENTED X4. DENIES PAIN. IN ROOM AIR AND DENIES SOB. BREATHING REGULAR AND UNLABORED. RIGHT WRIST G 20 PATENT AND SALINE LOCKED. LEFT ELBOW WITH SPLINT AND NO S/S POOR CIRCULATION NOTED. BED LOW AND LOCKED. SIDE RAILS UP X3. CALL LIGHT WITHIN REACH. WILL CONTINUE TO MONITOR.
[2019-05-21 08:00] VITALS: BP 148/87
[2019-05-21] MEDS: PANTOPRAZOLE 40 MG TABLET.DR PO SCH (08:05)
[2019-05-21] MEDS: HYDROCODONE/APAP 5/325MG 1 EACH TABLET PO PRN ×3 (08:05→21:13)
[2019-05-21] MEDS: DAKINS QUARTER STRENGTH (0.125%) 480 ML BOTTLE TOP SCH (08:08)
[2019-05-21] MEDS: MUPIROCIN OINT 2% 22 GM TUBE SCH ×2 (08:08→20:57)
--- NOTE | 2019-05-21 08:58 | NUR ---
WOUND CARE CONSULT: PT FOLLOWED BY ORTHO AND PLASTIC SURGERY TEAMS FOR WOUND CARE. DEFER TO SURGICAL TEAMS FOR WOUND TREATMENT PLAN. PT ON ISOFLEX LOW AIRLOSS BED. DISCUSSED SKIN PROTECTION WITH NURSING STAFF. WILL SEE PRN.
[2019-05-21] MEDS: POTASSIUM CHLORIDE 20 MEQ TAB.PRT.SR PO SCH ×2 (11:05→12:04)
[2019-05-21] MEDS: VANCOMYCIN 0.75 GM in IV D5W 250 ML IV SCH (11:11)
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
[2019-05-21 16:00] VITALS: BP 176/89
--- NOTE | 2019-05-21 19:00 | NUR ---
MS RN NOTE RECEIVED PT IN STABLE CONDITION, A/O X3, CURRENTLY IN BED ON THE PHONE AND GUEST AT BEDSIDE, NO SIGNS OF SOB OR DISTRESS, NO COMPLAINTS OF PAIN. IV IN R WRIST #20 WITH IVF INFUSING, TOLERATING WELL. ALL CURRENT NEEDS ATTENDED TO. BED LOW, LOCKED, UPPER RAILS UP, ISOLATION PRECAUTIONS IN PLACE AND CALL LIGHT WITHIN REACH. WILL CONT. TO MONITOR.
--- NOTE | 2019-05-21 19:00 | NUR ---
MS/RN NOTE THE PATIENT IS ALERT AND ORIENTED X4. IN ROOM AIR AND DENIES SOB. RESPIRATION REGULAR AND UNLABORED. SATURATION IS ROOM AIR IS AT 97%. DENIES PAIN. RIGHT WRIST G 20 PATENT AND SALINE LOCKED. LEFT ARM WITH NO S/S POOR CIRCULATION. BED LOW AND LOCKED. SIDE RAILS UP X3. CALL LIGHT WITHIN REACH. WILL ENDORSE TO CLINICAL PSYCHIATRIST.
[2019-05-21 20:00] VITALS: BP 139/113
[2019-05-21] MEDS: VANCOMYCIN 1 GM in IV D5W 250 ML IV SCH (20:50)
[2019-05-21] MEDS: ENOXAPARIN SODIUM 40 MG/0.4 ML DISP.SYRIN SQ SCH (20:51)
[2019-05-22] MEDS: IV NS 0.9% 1,000 ML IV PRN (04:47)
[2019-05-22] MEDS: HYDROCODONE/APAP 5/325MG 1 EACH TABLET PO PRN (05:38)
--- NOTE | 2019-05-22 05:48 | NUR ---
MS RN NOTE ATTEMPTED TO CHANGED L ARM WOUND DRESSING, PT REFUSED. RISKS AND BENEFITS MADE AWARE. WILL CONT. TO MONITOR.
--- NOTE | 2019-05-22 06:20 | NUR ---
MS RN NOTE PT REMAINS IN STABLE CONDITION, A/O X3, CURRENTLY RESTING. NO SIGNS OF SOB OR DISTRESS, NO COMPLAINTS OF PAIN. IV IN R WRIST #20 WITH IVF INFUSING, TOLERATING WELL. ALL CURRENT NEEDS ATTENDED TO. BED LOW, LOCKED, UPPER RAILS UP, ISOLATION PRECAUTIONS IN PLACE AND CALL LIGHT WITHIN REACH. WILL CONT. TO MONITOR AND ENDORSE TO NEXT SHIFT FOR GABRIELE.
[2019-05-22 06:38] LABS: CALCIUM, SERUM 8.9 mg/dL (8.5-10.1); CREATININE 0.6 mg/dL (0.6-1.3); MAGNESIUM 1.4 mg/dL (1.8-2.4); POTASSIUM 3.5 mmol/L (3.5-5.1)
[2019-05-22] MEDS ORDERED: CHOLECALCIFEROL (VITAMIN D 3) 400 UNIT TABLET PO SCH (09:00)
[2019-05-22] MEDS ORDERED: LEVOTHYROXINE SODIUM 50 MCG TABLET PO SCH (09:00)
[2019-05-22] MEDS ORDERED: TRAZODONE 50 MG TABLET PO PRN (09:00)
[2019-05-22] MEDS ORDERED: LISINOPRIL (5MG) 5 MG TABLET PO SCH (09:00)
[2019-05-22] MEDS ORDERED: SERTRALINE HCL 50 MG TABLET PO SCH (09:00)
[2019-05-22] MEDS ORDERED: AMLODIPINE BESYLATE 5 MG TABLET PO SCH (09:00)
[2019-05-22] MEDS ORDERED: ASPIRIN 325 MG TABLET PO SCH (09:00)
[2019-05-22] MEDS: PANTOPRAZOLE 40 MG TABLET.DR PO SCH (10:33)
[2019-05-22] MEDS: oxyCODONE HCL SR 20MG TAB.SR.12H PO SCH ×2 (10:33→20:20)
[2019-05-22] MEDS: VANCOMYCIN 1 GM in IV D5W 250 ML IV SCH ×2 (10:56→20:52)
[2019-05-22] MEDS: ALPRAZOLAM 1 MG TABLET PO SCH ×2 (10:57→18:40)
[2019-05-22] MEDS: DAKINS QUARTER STRENGTH (0.125%) 480 ML BOTTLE TOP SCH (11:17)
[2019-05-22] MEDS: MUPIROCIN OINT 2% 22 GM TUBE SCH ×2 (11:18→20:21)
[2019-05-22] MEDS: Magnesium 1GM/D5W 100ML PREMIX 100 ML IV SCH ×4 (12:48→17:02)
[2019-05-22] MEDS: ENSURE ENLIVE CHOC 237 ML CAN PO SCH ×2 (14:28→17:00)
[2019-05-22] MEDS: ACETAMINOPHEN 325 MG TABLET PO PRN (16:17)
--- NOTE | 2019-05-22 17:00 | NUR ---
REFUSED DISCHARGE PHOTOS.
--- NOTE | 2019-05-22 18:00 | NUR ---
CALLING NURSE CONTINUALLY.HOME MEDS STARTED AFTER SPEAKING WITH [employer]ING MACHINE OPERATOR FOR MATTHEW.MED. WITH PLAIN TYLENOL LATE AFTERNOON FOR LT. ARM PAIN.MG IV REPLACEMENT DONE.IV HEP LOCKS LEFT IN FOR SNF HOME USE. TO BE DC'D THIS [place].DTR.CALLING FRQ. TO CHECK ON PT.
[2019-05-22 20:00] VITALS: BP 117/73
--- NOTE | 2019-05-22 20:00 | NUR ---
RN NOTES CALLED [facility] TO FOLLOW-UP AND SPOKE TO ABAD ALVAREZ (FROM [facility]) PT. IS ON WILL CALL AND NOBODY ACTIVATED THE WILL CALL.. PER KIM THE AMBULANCE IS COMING AFTER 2 HOURS
[2019-05-22] MEDS: ENOXAPARIN SODIUM 40 MG/0.4 ML DISP.SYRIN SQ SCH (20:21)
--- NOTE | 2019-05-22 20:30 | NUR ---
MS RN NOTES PATIENT REFUSED LOVENOX.
--- NOTE | 2019-05-22 22:55 | NUR ---
RN NOTES PATIENT LEFT VIA AMBULANCE, VITAL SIGNS STABLE, DENIES PAIN , NO SOB, .. DISCHARGE INSTRUCTION WAS RENDERED AGAIN AND PATIENT UNDERSTOOD IT.. PATIENT LEFT ON STABLE CONDITION
== END 2019-05-22 22:55 | DRG 507 ==
LOC: ER 13:19 → MED 15:52
PROVIDERS: ATTEND Nurse Practitioner Acute Care
PROC: 0RPM04Z Removal of Internal Fixation Device from Left Elbow Joint, Open Approach (ICD-10-PCS; principal; 2019-05-18)
DX: T84.59XA Infection and inflammatory reaction due to other internal joint prosthesis, initial encounter (principal); L89.154 Pressure ulcer of sacral region, stage 4; L03.114 Cellulitis of left upper limb; E44.1 Mild protein-calorie malnutrition; Z68.1 Body mass index [BMI] 19.9 or less, adult; M81.0 Age-related osteoporosis without current pathological fracture; E03.9 Hypothyroidism, unspecified; E78.5 Hyperlipidemia, unspecified; F03.90 Unspecified dementia, unspecified severity, without behavioral disturbance, psychotic disturbance, mood disturbance, and anxiety; F41.9 Anxiety disorder, unspecified; Y83.9 Surgical procedure, unspecified as the cause of abnormal reaction of the patient, or of later complication, without mention of misadventure at the time of the procedure; Y92.9 Unspecified place or not applicable; G89.4 Chronic pain syndrome; I25.10 Atherosclerotic heart disease of native coronary artery without angina pectoris; I10 Essential (primary) hypertension; Z96.643 Presence of artificial hip joint, bilateral; Z86.59 Personal history of other mental and behavioral disorders; Z83.3 Family history of diabetes mellitus; Z79.899 Other long term (current) drug therapy; Z79.82 Long term (current) use of aspirin; Z91.81 History of falling; Z96.659 Presence of unspecified artificial knee joint; Z85.3 Personal history of malignant neoplasm of breast; Z88.6 Allergy status to analgesic agent; Z88.5 Allergy status to narcotic agent; D64.9 Anemia, unspecified; F17.200 Nicotine dependence, unspecified, uncomplicated; F32.9 Major depressive disorder, single episode, unspecified; G47.00 Insomnia, unspecified; J44.9 Chronic obstructive pulmonary disease, unspecified; Z87.81 Personal history of (healed) traumatic fracture; Z22.322 Carrier or suspected carrier of Methicillin resistant Staphylococcus aureus
CPT/HCPCS: 36415; 71045-TC; 72220-TC; 73080-TC; 80048-TC; 80061-TC; 80202-TC; 83735-TC; 84100-TC; 84134-TC; 84443-TC; 85025-TC; 87040-TC; 87070-TC; 87081-TC; 88300-TC; 88304-TC; 97116-TC; 97530-TC; A4216; A4217; A6253; A6403; G0378; J0690; J1650; J2250; J2405; J2543; J2704; J3010; J3370; J3475; J3480; J3490; J7030; J7060